=== PATIENT | male | born 1960 | race Caucasian/White ===

== ENCOUNTER → 2019-06-18 13:35 | Outpatient (CLI) | payer OTHER, SELFPAY ==
--- NOTE | 2019-06-18 13:56 | CT_ITS ---
STUDY: CT CHEST WITH CONTRAST REASON FOR EXAM: Male, 58 years old. 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 Individualized dose optimization techniques were used for this CT. COMPARISON: None. FINDINGS: Mild apical paraseptal cystic changes and pleural thickening is present. The lungs are otherwise clear. No nodules. No consolidation. No pleural effusion. No active pulmonary edema. Multiple healed left-sided rib fractures are present. There is no demonstrated pleural abnormality. Normal heart size and pericardium. There are calcifications of the coronary arteries. Normal mediastinum. Normal hilar regions. Normal enhanced pulmonary arteries. There is atherosclerotic calcification of the aortic arch with tortuosity and elongation of the aortic arch and descending thoracic aorta. No aneurysm is seen. There are multi-level degenerative changes of the thoracic spine. No demonstrated destructive bony lesions. A tiny gallstone is present. The remaining visualized upper abdominal structures are grossly unremarkable. CT/Chest WITH Contrast IMPRESSION: 1. Minimal apical pleural scarring and paraseptal cystic changes. Electronically Signed: Mario Perdomo MD at 16:53 EST , Service support ,
--- NOTE | 2019-06-18 13:56 | CT_ITS ---
STUDY: CT SOFT TISSUE NECK WITH CONTRAST REASON FOR EXAM: Male, 58 years old. MALIGNANT TUMOR OF LARYNX-HAVING SURGERY TO REMOVE TOMORROW, PREV SMOKER-45 YR SMOKER X 1 PPD, CHF RADIATION DOSAGE (If Supplied By Facility): CTDIvol = ( 22.14 ) mGy, DLP = ( 1788.09 ) mGycm TECHNIQUE: The patient was scanned in a multi-detector CT scanner. High resolution transaxial imaging was performed following intravenous administration of IV Isovue 300 75. Sagittal and coronal images were reconstructed. Individualized dose optimization techniques were used for this CT. COMPARISON: None. FINDINGS: Abnormal 3.41 x 1.50 cm enhancing mass in the anterior aspect of the lower larynx/junction with the base of the tongue and posterior to the hyoid bone is compatible with the reported malignant neoplasm. There is also abnormal thickening of the inferior aspect of the epiglottis which is likely infiltrated by the adjacent tumor. The left vallecular slightly efface due to mass effect from the enlarged epiglottis. There is also mild to moderate enlargement/hypertrophy and heterogeneous enhancement in the soft palate and retropharyngeal tonsillar tissue and uvula without a discrete mass. The findings could be related to be malignant laryngeal mass. Normal bilateral parotid glands. Normal bilateral rn military spaces. Normal bilateral parapharyngeal spaces. Normal bilateral carotid spaces. Normal bilateral sublingual and submandibular glands and spaces. Normal visualized nasopharynx. Normal retropharyngeal space. Normal perivertebral space. Normal visualized bilateral faucial tonsils. The visualized tongue, tongue base and oropharynx are normal. The visualized cervical lymph nodes (levels I-) are within normal size limits, and maintain normal morphology. There is no demonstrated solid or cystic mass lesion. There is no abnormal contrast enhancement. Normal visualized bilateral piriform sinuses, aryepiglottic folds, vocal cords, and arytenoid-cricoid articulations. Normal subglottic trachea. The left lobe of the thyroid gland is slightly smaller than the right side. Normal visualized pulmonary apices. Normal visualized paranasal sinuses. Normal visualized cervical spine. CT/Soft Tissue Neck WITH Contrast IMPRESSION: 1. Abnormal 3.41 x 1.50 cm enhancing mass in the anterior aspect of the lower larynx/junction with the base of the tongue and posterior to the hyoid bone is compatible with the reported malignant neoplasm. 2. There is also abnormal thickening of the inferior aspect of the epiglottis which is likely infiltrated by the adjacent tumor. 3. There is also mild to moderate enlargement/hypertrophy and heterogeneous enhancement in the soft palate and retropharyngeal tonsillar tissue and uvula of without a discrete mass. The findings could be related to be malignant laryngeal mass. Electronically Signed: Mario Perdomo MD at 16:31 EST , Service support ,
== END ==
PROVIDERS: Family Provider Otolaryngology; PCP Otolaryngology; Referring Provider Otolaryngology; Visit Provider Otolaryngology
DX: C32.9 Malignant neoplasm of larynx, unspecified (principal)
CPT/HCPCS: 70491; 71260; Q9967

== ENCOUNTER 2019-06-19 07:36 | Day surgery (SDC) | payer OTHER, SELFPAY ==
--- NOTE | 2019-06-18 13:49 | EKG12_ITS ---
Test Reason : PRE OP Blood Pressure : / mmHG Vent. Rate : 082 BPM Atrial Rate : 082 BPM P-R Int : 198 ms QRS Dur : 090 ms QT Int : 364 ms P-R-T Axes : 046 -37 028 degrees QTc Int : 425 ms Normal sinus rhythm Left axis deviation Low voltage QRS Inferior infarct , age undetermined Cannot rule out Anterior infarct , age undetermined Abnormal ECG Confirmed by DAVID RUBIN, MANUEL ([id number]), purchasing expeditor GRABIEL PLASENCIA ([id number]) on 06/23/2019 11:31:42 AM Referred By: Mikey Mckenzie Confirmed By:MANUEL HERNANDEZ MD
[2019-06-18 15:19] LABS: Anion Gap 7 (5-15); BUN 17 mg/dL (7-18); BUN/Creat Ratio 16.3 RATIO (10-20); Calcium,Total 9.3 mg/dL (8.5-10.1); Chloride 98 mmol/L (98-107); Creatinine, Serum 1.04 mg/dL (0.70-1.30); EST Glomerular Filtration Rate 78 mL/min (>60); Est Glom Filt Rate - Afr Amer 94 mL/min (>60); Glucose 78 mg/dL (74-106); Potassium 3.5 mmol/L (3.5-5.1); Sodium Level 136 mmol/L (136-145)
[2019-06-19] VITALS (7 sets, daily range): BP systolic 103–132; BP diastolic 69–108; PULSE 16–96; RESP 16; TEMP 36.7–36.8; O2SAT 95–100; BMI 33.0
--- NOTE | 2019-06-19 | LARBX_PTH ---
PATIENT: LAZARO BIRCH [place] [facility] [id number] AGE/SX: 58/M ROOM: RE06/19/[address]: Dr. Mikey Mckenzie MD : 1960 BED: DIS: 06/19/2019 SPEC #: [id number] RECD: 06/19/19 10:40 STATUS: MICHELLE MEAGHAN #: [id number] MANFRED: 06/19/19 00:[address]: Mikey Mckenzie DEPT: SURGICAL PATHOLOGY RECD BY: Teersa Rajan ENTERED: 06/19/19 11:16 SP TYPE: LARYNX BX OTHR DR: Dr. Federico Maradiaga DO Tissues: A - Laryngeal cavity B - Laryngeal cavity C - Laryngeal cavity Procedures: Frozen Section (charge) Surgery Specimen Level IV HEADER OPERATION: Direct microscopic laryngoscopy with biopsy PRE-OP DIAGNOSIS: Malignant tumor of larynx; dysphonia; hemoptysis TISSUE SUBMITTED: A - Laryngeal mass, surface of epiglottis, B - Right false vocal fold, C - Vallecular cyst FROZEN SECTION DIAGNOSIS A. Laryngeal mass, biopsy: Squamous cell carcinoma. AM:beth 06/19/19 Case has been reviewed in consultation with Dr. Louise who concurs with the above diagnosis. IDC:SJ MICROSCOPIC DIAGNOSIS A. 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 Benign fragment of cartilage with associated acute and chronic inflammation. See comment. B. Right false vocal fold, biopsy: Chronic inflammation. No evidence of malignancy. C. 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 No evidence of malignancy. AM:beth 06/22/19 COMMENT A. The specimen contains a well differentiated minimally invasive squamous cell carcinoma with focal keratinization and microcalcifications. Clinical correlation is suggested. Immunohistochemistry ([id number]) supports the diagnosis. Case has been reviewed in consultation with Dr. Louise who concurs with the above diagnosis. IDC:SJ MICROSCOPIC DESCRIPTION Slides are reviewed. GROSS DESCRIPTION A - Received fresh for frozen section consultation/diagnosis labeled with the patient's name is a specimen designated laryngeal mass, surface of epiglottis. The specimen consists of a fragment of velez soft tissue measuring 0.5 x 0.3 x 0.1 cm. The entire specimen is submitted for frozen section diagnosis in one cassette. B - Received in fixative is one container labeled with the patient's name and designated right false vocal fold. The specimen consists of one irregular fragment of light velez soft tissue that measures 0.1 x 0.1 x 0.1 cm. The specimen is totally submitted in one cassette. C - Received in fixative is one container labeled with the patient's name and designated vallecular cyst. The specimen consists of multiple irregular fragments of velez soft tissue that in aggregate measure 0.5 x 0.2 x 0.1 cm. The specimen is totally submitted in one cassette. / SJ:rg 06/19/19 TC:0 CPT: 83221 x3, 45138
--- NOTE | 2019-06-19 | IMM_PTH ---
PATIENT: LAZARO BIRCH LOC: [facility] U#:[id number] AGE/SX: 58/M ROOM: RE06/19/[address]: Dr. Mikey Mckenzie MD : 1960 BED: DIS: 06/19/2019 SPEC #: [id number] RECD: 06/22/19 13:58 STATUS: MICHELLE REQ #: [id number] MANFRED: 06/19/19 00:[address]: Mikey Mckenzie DEPT: IMMUNOHISTOCHEMISTRY RECD BY: Teresa Rajan ENTERED: 06/22/19 14:00 SP TYPE: IMMUNO OTHR DR: Dr. Federico Maradiaga DO Tissues: A - Larynx, NOS Procedures: p16 (initial) CD31 (add) CK5-6 (add) KI-67 (add) FACTOR VIII (add) P40 (add) PHYSICIAN & INSTITUTION [place] [id number] SPECIMEN INFORMATION: Tissue Source: A - Laryngeal mass biopsy Clinical Info: Laryngeal mass Specimen Number: [id number] CPT code: 97119, 08241 x5 METHODOLOGY: Deparaffinized sections of prefer/formalin-fixed tissue or PAP/DQ stained slides are incubated with monoclonal/polyclonal antibodies/oligonucleotide probes. Localization is made via biotin free immunoperoxidase method. Appropriate controls are performed and reacted as expected. Results on target cell population are indicated in the following table: RESULTS: ANTIBODY / CLONE RESULT Block A P16 (E6H4) negative Ki-67 (30-9) positive, low P40 (BC28) positive CK5-6 (D5 & 1684) positive Factor VIII (R Ag) negative CD31 (RICCI/70A) negative These tests were developed and their performance characteristics determined by [facility]. They may not have been cleared or approved by the U.S. Food and Drug Administration. The FDA has determined that such clearance or approval is not necessary. The above immunohistochemical/dualISH markers are ordered and reviewed by the Pathologist. INTERPRETATION: A. Laryngeal mass, biopsy: Invasive squamous cell carcinoma. AM:beth 06/23/19
[2019-06-19] MEDS: Lactated Ringers 1,000 ML 100 ML IV (08:00)
[2019-06-19] MEDS: Oxymetazoline 0.05% 1 SPRAY SPRAY.BTL 15 SPRAY (10:25)
[2019-06-19] MEDS: Lidocaine 4% 50 ML Bottle (10:25)
--- NOTE | 2019-06-19 10:50 | OP.PCM_ITS ---
Problem List (1) Malignant neoplasm of larynx, unspecified Status: Acute (2) Dysphonia Status: Acute (3) Hemoptysis Status: Acute Report of Operation Date of Procedure: 06/19/19 Pre-Operative Diagnosis: Malignant tumor of epiglottis, hemoptysis, hoarseness Post-Operative Diagnosis: Same Surgery/Procedure Performed:: Direct microlaryngoscopy with biopsy of tumor of larynx Description of Surgical Findings:: Kieran is a 58-year-old male presents of a patient for 2 months of progressive hoarseness progressive with hemoptysis. Examination showed an exophytic friable lesion of the epiglottis highly suspicious of malignant neoplasm and the above procedure was advised for definitive evaluation and treatment planning. The risks, alternatives, potential complications, and benefits were discussed at length and any questions answered to the patient and/or caregiver's satisfaction. Witnessed informed consent was obtained in the office, and the patient and/or caregiver was agreeable to proceed. Procedure went as follows: The patient was identified in the preoperative holding and brought to the operating room, placed under general anesthesia, and intubated. When appropriate anesthesia was obtained, the head of bed was rotated and the patient prepped and draped in usual sterile fashion. A moiste duy gauze was then placed to protect the upper gums and the Dedo laryngoscope then introduced. Direct laryngoscopy was then carried out. The lateral posterior pharyngeal wall mucosa, tonsillar fossa, vallecula, piriforms, were noted to be normal in appearance with multiple mucoceles noted within the left vallecula. There is noted to be an exophytic fungating lesion involving the laryngeal surface of the epiglottic petiole. The true and false vocal folds were then brought into view. The patient was then placed in suspension and the operative microscope brought into the field. Using pledgets soaked in a 50-50 mixture of oxymetazoline and 4% topical lidocaine the true vocal folds were then topicalized. The lesion of the epiglottis was then biopsied with a cup forceps and sent for pathologic evaluation which confirmed squamous cell carcinoma. There is additionally noted to be abnormal tissue along the false vocal fold on the right which was additionally biopsied. The laryngoscope was then repositioned in the cysts of the vallecula opened with the overlying mucosa sent as pathologic specimen. Hemostasis with pledgets with oxymetazoline was then obtained and 2 mL's of 4% respiratory lidocaine was then applied with the excess suctioned clear to reduce the risk of laryngospasm at the end of the procedure. The pledgets were then removed and the patient taken out of suspension and returned to anesthesia, was revived, and extubated without complication having tolerated the procedure well. Type of Anesthesia:: General Anesthesiologist: Mikey Villarreal Special Medications: none Specimen's removed: laryngeal biopsies Drains: none Estimated Blood Loss (mL): 5 mL Fluids Replaced: 1000 mL Grafts/Implants Used: none - Complications none - Admit VTE Documentation VTE Present on Admission: No VTE Mechan Device Prophylaxis: SCD's VTE Pharm Prophylaxis ordered?: No
--- NOTE | 2019-06-19 10:56 | DCINST_ITS ---
- Discharge Diagnoses Current Active Problems: Current Active and Chronic Problems Malignant neoplasm of larynx, unspecified (Acute) Dysphonia (Acute) Hemoptysis (Acute) You will use the following diet at home:: No restrictions Discharge Activity: Return to Normal Activity Call your doctor if your incision/area has: Sudden Increased Bleeding Call your doctor if you observe: Fever of 101 or Higher, Uncontrolled pain Allergies/Adverse Reactions: Allergies No Known Allergies Allergy (Verified 06/19/19 07:46) Medications to take at Discharge Azelastine HCl [Astelin] 1 spray NASAL BID 06/18/19 Furosemide [Lasix] 40 mg PO DAILY 06/18/19 Rosuvastatin Calcium [Crestor] 20 mg PO QHS 06/18/19 Spironolactone [Aldactone] 25 mg PO DAILY 06/18/19 Primary Care Physician: Federico Maradiaga DO [Primary Care Provider] - Test Results: Test results from this visit will be discussed in further detail at your follow- up appointment, if applicable. Please Follow Up With: Mikey Mckenzie MD When: 2 weeks
--- NOTE | 2019-07-09 09:13 | HP_ITS ---
Intake Vital Signs 07/09/19 Body Mass Index (BMI) 32.3 07/09/19 Height 6 ft 1 in 07/09/19 Weight: 246 lb 07/09/19 Body Mass Index (BMI) 32.4 07/09/19 Blood Pressure 124/87 H 07/09/19 Blood Pressure Location Rt brachial 07/09/19 Blood Pressure Position Sitting 07/09/19 Respiratory Rate 18 07/09/19 Pulse Rate 99 07/09/19 Pulse Source Monitor 07/09/19 Temperature 97.6 F L 07/09/19 Temperature Source Oral 07/09/19 Pulse Ox 98 07/09/19 Oxygen Delivery Method room air Intake Visit Reasons: Port Placement Consult Chief Complaint: Port placement Veterinary Surgery Technologist Required: No Accompanied by: Is patient in pain?: No Allergies No Known Allergies Allergy (Verified 07/09/19 08:28) Medications Azelastine HCl [Astelin] 1 spray NASAL BID 06/18/19 [History Confirmed 07/09/19] Furosemide [Lasix] 40 mg PO DAILY 06/18/19 [History Confirmed 07/09/19] Rosuvastatin Calcium [Crestor] 20 mg PO QHS 06/18/19 [History Confirmed 07/09/19] Spironolactone [Aldactone] 25 mg PO DAILY 06/18/19 [History Confirmed 07/09/19] Acetaminophen [Tylenol Tablet] 500 mg PO Q4H PRN PRN tab 06/19/19 [Rx Confirmed 07/09/19] PFSH Medical History Malignant neoplasm of larynx, unspecified (Acute) Dysphonia (Acute) Hemoptysis (Acute) Carcinoma of supraglottis (Acute) High cholesterol (Acute) History of low potassium (Acute) biopsy (Acute) Surgical History (Updated 07/09/19 @ 08:26 by Sari Lorenzana) No history of previous surgery (Acute) Family History Mother CVA (cerebral vascular accident) Father Heart disease Social History (Updated 07/09/19 @ 09:13 by Bianka Noguera MD) Smoking Status: Former smoker alcohol intake: current substance use type: does not use HPI HPI HPI: LAZARO BIRCH, is a 58 M who presents to the office today for HPI HPI Surgical H&P: Yes HPI: LAZARO BIRCH, is a 58 M who presents to the office today for port placement and agreeable for 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 Patient had a biopsy mid June. Patient states he noticed initially a sore throat but have a little dysphagia with bread occasionally and will occasionally have hemoptysis small amounts decreased recently. Patient is scheduled for a PET scan next Saturday and is meeting with radiation oncology today. ROS General General: Yes fatigue; no weight change, appetite, colon cancer, breast cancer or weakness HEENT HEENT: Yes difficulty swallowing; no eye injury, eye surgery, swollen glands or hoarseness Endo Endocrine: No thyroid disease, diabetes mellitus, thyroid cancer, Hair loss, heat intolerance or cold intolerance Skin Skin: No rash or changing moles Breast Breast: No left breast lump, right breast lump, nipple discharge, breast pain, abnormal mammogram, abnormal US or breast enlargement Musc Musculoskeletal: No back problems, arthritis, rheumatoid arthritis, gout or joint pain Cardio Cardiovascular: Yes heart disease; no murmur, pacemaker, atrial fibrillation, high blood pressure, heart attack, heart stent, palpitations, shortness of breat with exertion or chest pain Psych Psychiatric: Yes anxiety; no depression or hearing voices Resp Respiratory: Yes shortness of breath, No sleep apnea, Yes cough, No COPD, No asthma, No emphysema, No wheezing Gastro Gastrointestinal: No abdominal pain, No nausea or vomiting, No diarrhea, No constipation, No blood in stool, No acid reflux, No hemorrhoids, No ulcers, No gallbladder problem, No black,tarry stools Vern Hematologic: No blood thinners, No blood disorders, No bleeding, No anemia, No blood clots Neuro Neurologic: No system reviewed and no additional complaints, except as docu, No as per HPI, No abnormal walking, No abnormal hearing, No abnormal movements, No abnormal speech, No behavioral changes, No burning sensations, No confusion, No seizure-like activity, No unsteadiness, No dizziness, No localized weakness, No frequent falls, No headache(s), No lack of coordination, No loss of vision, No memory loss, No numbness, No other visual disturbances, No radiating pain, No restless legs, No sensory deficit, No fainting, No tingling, No tremor(s), No weakness, No other Exam Const General: cooperative, comfortable, no acute distress Neck Neck: normal visual inspection Chest Chest palpation & inspection: normal inspection of the chest Breast Palpation: No nipple discharge Cardio Heart Sounds: no murmurs GI Inspection: non-distended Palpation: soft, no guarding, nontender Assessment & Plan Problems 1. Encounter for adjustment or management of vascular access device Z45.2 2. 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 Right IJ possible left Patient has been counseled as to the risks/benefits of the procedure. I have explained the risks of the surgery, including but not limited to: infection, bleeding, injury to any blood vessels/nerves, injury to lungs (such as pneumothorax or hemothorax and need for chest tube), not having any access, nonfunctioning of port due to thrombosis, infection of port, etc. the patient understands and agrees to proceed. I have answered all the patient's questions to the patient?s satisfaction and the patient has no further questions. Due to patient's plan for radiation chemotherapy for his laryngeal cancer did recommend a PEG tube as people usually have issues with swallowing during treatment which may only last for couple of months but help keep adequate nutrition, patient was agreeable I have offered the patient percutaneous endoscopic gastrostomy tube placement. I have explained the risks/benefits of the procedure and described the procedure. I have discussed the risks with the patient, including but not limited to: infection, bleeding, perforation of the GI tract requiring emergency surgery, inability to complete the procedure, injury to any internal organs, complications of anesthesia, etc. - the patient understands and agrees to proceed. I have answered all the patient's questions to the patient's satisfaction and the patient has no further questions. Bianka Noguera M.D. Pager: [phone] [facility] [address] [place] [address], [facility], [address] [place] [address] Office: 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
== END 2019-06-19 11:52 | disposition home or self-care (01) ==
LOC: SDC 07:37 → AC 07:38
PROVIDERS: Family Provider Student in an Organized Health Care Education/Training Program; PCP Student in an Organized Health Care Education/Training Program; Referring Provider Otolaryngology; Visit Provider Otolaryngology
PROC: 0CJS8ZZ Inspection of Larynx, Via Natural or Artificial Opening Endoscopic (ICD-10-PCS; CPT 31575; principal; 2019-06-19 09:15)
DX: C32.9 Malignant neoplasm of larynx, unspecified (principal); R49.0 Dysphonia; R04.2 Hemoptysis; E78.00 Pure hypercholesterolemia, unspecified; Z79.899 Other long term (current) drug therapy; F10.20 Alcohol dependence, uncomplicated; J44.9 Chronic obstructive pulmonary disease, unspecified; F17.290 Nicotine dependence, other tobacco product, uncomplicated
CPT/HCPCS: 31536; 36415; 80048; 88305; 88331; 88341; 88342; 93005; J7120; J2405

== ENCOUNTER 2019-07-15 14:23 | Outpatient (RCR) | payer OTHER, SELFPAY ==
[2019-07-09 08:28] VITALS: BMI 32.3
== END 2019-08-04 23:59 ==
LOC: NS 14:23
PROVIDERS: Family Provider Student in an Organized Health Care Education/Training Program; PCP Student in an Organized Health Care Education/Training Program; Visit Provider Internal Medicine Medical Oncology
DX: Z71.3 Dietary counseling and surveillance (principal); C32.2 Malignant neoplasm of subglottis
CPT/HCPCS: 97802

== ENCOUNTER 2019-07-16 06:42 | Day surgery (SDC) | payer OTHER, SELFPAY ==
[2019-07-09 08:28] VITALS: BMI 32.3
--- NOTE | 2019-07-09 09:13 | HP_ITS ---
Intake Vital Signs 07/09/19 Body Mass Index (BMI) 32.3 07/09/19 Height 6 ft 1 in 07/09/19 Weight: 246 lb 07/09/19 Body Mass Index (BMI) 32.4 07/09/19 Blood Pressure 124/87 H 07/09/19 Blood Pressure Location Rt brachial 07/09/19 Blood Pressure Position Sitting 07/09/19 Respiratory Rate 18 07/09/19 Pulse Rate 99 07/09/19 Pulse Source Monitor 07/09/19 Temperature 97.6 F L 07/09/19 Temperature Source Oral 07/09/19 Pulse Ox 98 07/09/19 Oxygen Delivery Method room air Intake Visit Reasons: Port Placement Consult Chief Complaint: Port placement Liquor Blender Required: No Accompanied by: Is patient in pain?: No Allergies No Known Allergies Allergy (Verified 07/09/19 08:28) Medications Azelastine HCl [Astelin] 1 spray NASAL BID 06/18/19 [History Confirmed 07/09/19] Furosemide [Lasix] 40 mg PO DAILY 06/18/19 [History Confirmed 07/09/19] Rosuvastatin Calcium [Crestor] 20 mg PO QHS 06/18/19 [History Confirmed 07/09/19] Spironolactone [Aldactone] 25 mg PO DAILY 06/18/19 [History Confirmed 07/09/19] Acetaminophen [Tylenol Tablet] 500 mg PO Q4H PRN PRN tab 06/19/19 [Rx Confirmed 07/09/19] PFSH Medical History Malignant neoplasm of larynx, unspecified (Acute) Dysphonia (Acute) Hemoptysis (Acute) Carcinoma of supraglottis (Acute) High cholesterol (Acute) History of low potassium (Acute) biopsy (Acute) Surgical History (Updated 07/09/19 @ 08:26 by Sari Lorenzana) No history of previous surgery (Acute) Family History Mother CVA (cerebral vascular accident) Father Heart disease Social History (Updated 07/09/19 @ 09:13 by Bianka Noguera MD) Smoking Status: Former smoker alcohol intake: current substance use type: does not use HPI HPI HPI: LAZARO BIRCH, is a 58 M who presents to the office today for HPI HPI Surgical H&P: Yes HPI: LAZARO BIRCH, is a 58 M who presents to the office today for port placement and agreeable for 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 Patient had a biopsy mid June. Patient states he noticed initially a sore throat but have a little dysphagia with bread occasionally and will occasionally have hemoptysis small amounts decreased recently. Patient is scheduled for a PET scan next Saturday and is meeting with radiation oncology today. ROS General General: Yes fatigue; no weight change, appetite, colon cancer, breast cancer or weakness HEENT HEENT: Yes difficulty swallowing; no eye injury, eye surgery, swollen glands or hoarseness Endo Endocrine: No thyroid disease, diabetes mellitus, thyroid cancer, Hair loss, heat intolerance or cold intolerance Skin Skin: No rash or changing moles Breast Breast: No left breast lump, right breast lump, nipple discharge, breast pain, abnormal mammogram, abnormal US or breast enlargement Musc Musculoskeletal: No back problems, arthritis, rheumatoid arthritis, gout or joint pain Cardio Cardiovascular: Yes heart disease; no murmur, pacemaker, atrial fibrillation, high blood pressure, heart attack, heart stent, palpitations, shortness of breat with exertion or chest pain Psych Psychiatric: Yes anxiety; no depression or hearing voices Resp Respiratory: Yes shortness of breath, No sleep apnea, Yes cough, No COPD, No asthma, No emphysema, No wheezing Gastro Gastrointestinal: No abdominal pain, No nausea or vomiting, No diarrhea, No constipation, No blood in stool, No acid reflux, No hemorrhoids, No ulcers, No gallbladder problem, No black,tarry stools Vern Hematologic: No blood thinners, No blood disorders, No bleeding, No anemia, No blood clots Neuro Neurologic: No system reviewed and no additional complaints, except as docu, No as per HPI, No abnormal walking, No abnormal hearing, No abnormal movements, No abnormal speech, No behavioral changes, No burning sensations, No confusion, No seizure-like activity, No unsteadiness, No dizziness, No localized weakness, No frequent falls, No headache(s), No lack of coordination, No loss of vision, No memory loss, No numbness, No other visual disturbances, No radiating pain, No restless legs, No sensory deficit, No fainting, No tingling, No tremor(s), No weakness, No other Exam Const General: cooperative, comfortable, no acute distress Neck Neck: normal visual inspection Chest Chest palpation & inspection: normal inspection of the chest Breast Palpation: No nipple discharge Cardio Heart Sounds: no murmurs GI Inspection: non-distended Palpation: soft, no guarding, nontender Assessment & Plan Problems 1. Encounter for adjustment or management of vascular access device Z45.2 2. 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 Right IJ possible left Patient has been counseled as to the risks/benefits of the procedure. I have explained the risks of the surgery, including but not limited to: infection, bleeding, injury to any blood vessels/nerves, injury to lungs (such as pneumothorax or hemothorax and need for chest tube), not having any access, nonfunctioning of port due to thrombosis, infection of port, etc. the patient understands and agrees to proceed. I have answered all the patient's questions to the patient?s satisfaction and the patient has no further questions. Due to patient's plan for radiation chemotherapy for his laryngeal cancer did recommend a PEG tube as people usually have issues with swallowing during treatment which may only last for couple of months but help keep adequate nutrition, patient was agreeable I have offered the patient percutaneous endoscopic gastrostomy tube placement. I have explained the risks/benefits of the procedure and described the procedure. I have discussed the risks with the patient, including but not limited to: infection, bleeding, perforation of the GI tract requiring emergency surgery, inability to complete the procedure, injury to any internal organs, complications of anesthesia, etc. - the patient understands and agrees to proceed. I have answered all the patient's questions to the patient's satisfaction and the patient has no further questions. Bianka Noguera M.D. Pager: [phone] [facility] [address] [place] [address], [facility], [address] [place] [address] Office: 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 There are no clinical changes since date of exam.
[2019-07-15 14:57] VITALS: BMI 32.7
[2019-07-16] VITALS (10 sets, daily range): BP systolic 81–113; BP diastolic 50–76; PULSE 71–86; RESP 16; TEMP 36.5–36.7; O2SAT 96–100; BMI 32.5
--- NOTE | 2019-07-16 | IMM_PTH ---
PATIENT: LAZARO BIRCH [place] [facility] [id number] AGE/SX: 58/M ROOM: RE07/16/[address]: Dr. Bianka Noguera MD : 1960 BED: DIS: 07/16/2019 SPEC #: [id number] RECD: 07/17/19 10:10 STATUS: MICHELLE REQ #: [id number] MANFRED: 07/16/19 00:[address]: Bianka Noguera DEPT: IMMUNOHISTOCHEMISTRY RECD BY: Teresa Rajan ENTERED: 07/17/19 10:12 SP TYPE: IMMUNO OTHR DR: Dr. Federico Maradiaga DO Tissues: Gastric mucous membrane Procedures: Synapto (add) Woody Ret (add) CD56 (add) CHROMO (add) CK14 (add) CK5-6 (add) FABIENNE (add) P53 (add) NEUROFIL (add) Pankeratin (initial) P40 (add) NSE (add) S-100 (add) PHYSICIAN & [address] [address] SPECIMEN INFORMATION: Tissue Source: GE junction Clinical Info: Malignant neoplasm larynx, carcinoma supraglottis Specimen Number: [id number] CPT code: 33687, 68501 x12 METHODOLOGY: Deparaffinized sections of prefer/formalin-fixed tissue or PAP/DQ stained slides are incubated with monoclonal/polyclonal antibodies/oligonucleotide probes. Localization is made via biotin free immunoperoxidase method. Appropriate controls are performed and reacted as expected. Results on target cell population are indicated in the following table: RESULTS: ANTIBODY / CLONE RESULT AE1-3 (AE1/AE3/PCK26) negative S-100 (4C4.9) positive Neurofil (2F11) negative CK5-6 (D5 & 1684) positive Chromo (LK2H10) negative Synapto (polyclonal) positive, dim NSE Neuron Specific Enolase positive CALRET (polyclonal) negative CD56 (123C3.D5) negative CK14 (LL002) negative P40 (BC28) negative FABIENNE (E29) negative P53 (DO-7) positive, 5% dim These tests were developed and their performance characteristics determined by [facility]. They may not have been cleared or approved by the U.S. Food and Drug Administration. The FDA has determined that such clearance or approval is not necessary. The above immunohistochemical/dualISH markers are ordered and reviewed by the Pathologist. 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 AM:beth 07/20/19 Case has been reviewed in consultation with Dr. Louise who concurs with the above diagnosis. IDC:SJ
[2019-07-16] MEDS: Lactated Ringers 1,000 ML 100 ML IV (07:37)
--- NOTE | 2019-07-16 08:00 | EGD_PTH ---
PATIENT: LAZARO BIRCH LOC: [facility] [place] U#:[id number] AGE/SX: 58/M ROOM: RE07/16/[address]: Dr. Bianka Noguera MD : 1960 BED: DIS: 07/16/2019 SPEC #: [id number] RECD: 07/16/19 10:17 STATUS: MICHELLE MEAGHAN #: [id number] MANFRED: 07/16/19 08:[address]: Bianka Noguera DEPT: SURGICAL PATHOLOGY RECD BY: Jamie Richardson ENTERED: 07/16/19 13:13 SP TYPE: EGD BIOPSY OT DR: Dr. Federico Maradiaga, DO Tissues: Gastric mucous membrane Procedures: Special Stain Group II Surgery Specimen Level IV Alcian Blue/PAS (control) HEADER OPERATION: Percutaneous endoscopic gastrostomy tube placement PRE-OP DIAGNOSIS: Malignant neoplasm larynx, carcinoma supraglottis TISSUE SUBMITTED: GE junction MICROSCOPIC DIAGNOSIS Gastroesophageal junction, biopsy: Consistent with granular cell tumor. See comment. AM:beth 07/20/19 COMMENT Sections show proliferation of monomorphic population of epithelioid-like cells with eosinophilic, granular cytoplasm. The lesion extends into the lamina propria without involvement of overlying epithelium. Alcian blue/PAS stain with matched control supports the above diagnosis. Immunohistochemistry ([id number]) supports the above diagnosis. Case has been reviewed in consultation with Dr. Louise who concurs with the above diagnosis. IDC:PORSHA MICROSCOPIC DESCRIPTION Slides are reviewed. GROSS DESCRIPTION Received in fixative is one container labeled with the patient's name and designated GE junction. The specimen consists of two irregular fragments of light velez soft tissue that in aggregate measure 0.5 x 0.3 x 0.1 cm. The specimen is totally submitted in one cassette. / PORSHA:beth 07/16/19 TC:1 CPT: 86959, 98390
[2019-07-16] MEDS: Cefazolin 2 GM in 0.9% Normal Saline 100 ML IV (08:11)
[2019-07-16] MEDS: Bupivacaine Mpf 0.5% 30 ML VIAL (08:25)
--- NOTE | 2019-07-16 08:52 | PCM.OPRPT ---
Report of Operation Date of Procedure: 07/16/19 Pre-Operative Diagnosis: Z 45.2, laryngeal carcinoma Post-Operative Diagnosis: Same Surgery/Procedure Performed:: 1. Placement of right IJ Port-A-Cath. 2. Use of fluoroscopy. 3. Use of ultrasound Type of Anesthesia:: MAC/Supplemental Anesthesiologist: Ellis Sinclair Special Medications: Ancef 2 g IV x1 Specimen's removed: None Estimated Blood Loss (mL): Minimal Description of Procedure: After informed consent was given, the patient was brought to the operating room and placed in the supine position. Appropriate time out protocol was followed. He was then given IV conscious sedation for anesthesia. The patient's bilateral upper chest and neck were then prepped with a surgical skin preparation and sterile surgical drapes were placed. After proper landmarks were ascertained, the skin at the upper right chest area was then infiltrated with 1:1 mixture of 1% lidocaine with epinephrine and 0.5% maricaine. A needle trocar was then inserted into the right internal jugular vein with ultrasound guidance-multiple vessels were viewed with u/s and the right IJ was chosen-- and there was good aspiration of venous blood. A wire was then threaded into the needle trocar and this was visualized under fluoroscopy to ensure that the wire was in the superior vena cava. Once this was done, then the needle trocar was removed. A small skin estrellita was made with an 11 blade knife at the wire entrance site. The dilator with the introducer sheath attached was then placed over the wire into the right internal jugular vein via the Seldinger technique and this was visualized under fluoroscopy. The dilator and sheath were in proper position as visualized by fluoroscopy. A subcutaneous pocket was then created caudad to the catheter insertion site. A transverse skin incision was made after the skin and subcutaneous tissues were infiltrated with local anesthetic. Blunt dissection was then used to create a space large enough for placement of the subcutaneous port. The catheter was then tunneled into the subcutaneous pocket. The wire and dilator were then removed. The catheter was then threaded into the introducer sheath and was positioned with its tip at the junction of the superior vena cava and the right atrium as visualized under fluoroscopy. The excess catheter was transected. The catheter was then attached to the subcutaneous port using manufacturers guidelines. The catheter was flushed with a heparin saline mixture prior to placement. Hemostasis was carefully controlled with electrocautery. The port was sutured to the subcutaneous fascia using 2-0 Vicryl suture at two sites. The port was then placed in the subcutaneous pocket and the sutures were ligated. The incision were reapproximated with interrupted subdermal 3-0 vicryl sutures. The skin was reapproximated with 3-0 nylon suture in a interrupted fashion. Steristrips were used for reinforcement of the skin closure at IJ insertion site and a sterile opsite dressings were applied. The patient tolerated the procedure well. Implants Used: Bard PowerPort isp M.R.I. 6Fr Lot lot [id number] ref [id number] Grafts/Implants Used: Bard PowerPort isp M.R.I. 6Fr Lot lot [id number] ref [id number] - Complications none
--- NOTE | 2019-07-16 09:35 | RAD_ITS ---
STUDY: X-RAY CHEST REASON FOR EXAM: Male, 58 years old. Port placement. TECHNIQUE: Single AP portable view of the chest. COMPARISON: None. FINDINGS: A right-sided portacatheter as been placed. The tip is at the junction of the superior vena cava and right atrium. Minimal increased markings at the left lung base suggestive of scarring and/or atelectasis. There is no demonstrated pleural abnormality. Normal size heart. Normal mediastinum and brendan. Normal visualized pulmonary arteries. Normal visualized aortic arch and descending thoracic aorta. There are diffuse degenerative changes of the visualized thoracic spine. Normal visualized ribs, clavicles, and shoulders. There is no demonstrated abnormality of the visualized soft tissue structures of the upper abdomen. RAD/CXR for Line Placement IMPRESSION: The tip of the right-sided portacatheter is at the junction of the superior vena cava and right atrium. Electronically Signed: Robin Rebolledo, at 10:27 EST , Service support ,
--- NOTE | 2019-07-16 09:41 | DCINST_ITS ---
Discharge Diet: No Restrictions Discharge Activity: May not drive while taking narcotic pain medications. May shower in (days): 1 - Keep port site clean and dry x5 days tape off with a Ziploc bag or take a lower shower and sponge bath the top part of your body. Lifting Restrictions: No lifting greater than 15 pounds with the right arm x1 week Call your doctor if your incision/area has: Continuous Slow Oozing, Sudden Increased Bleeding, Increased Pain/ Swelling, Increased Redness, Foul Smelling Discharge, Swelling at the incision site Call your doctor if you observe: Fever of 101 or Higher Change Dressing in (Days):: 2 - Okay to remove neck OpSite tomorrow, okay to keep the port site OpSite on for 2 to 3 days before changing, change the PEG site dressing daily Cleanse incision/area with: Soap & Water - PEG site Additional Dressing/Incision Instructions:: Flush the PEG with 30 cc of tap water daily Additional Instructions: Okay to take ibuprofen 400-600 mg PO q6hr PRN along with the hydrocodone/acetaminophen. Avoid Tylenol since there is already Tylenol in the hydrocodone/acetaminophen. Take all pain meds with food. Hydrocodone/acetaminophen can cause constipation recommend taking daily stool softener (i.e. Colace/docusate) while taking the pain meds. Recommend starting some MiraLAX 1 to 2 days if no bowel movement. If still no bowel movement the following day recommend taking magnesium citrate half the bottle and waiting 4-6 hours if still no results take the other half the bottle. Allergies/Adverse Reactions: Allergies No Known Allergies Allergy (Verified 07/15/19 14:57) Medications to take at Discharge Furosemide [Lasix] 40 mg PO DAILY 06/18/19 Rosuvastatin Calcium [Crestor] 20 mg PO QHS 06/18/19 Spironolactone [Aldactone] 25 mg PO DAILY 06/18/19 Ubidecarenone [Co Q-10] 10 mg PO DAILY 07/09/19 Dexamethasone [Decadron] 8 mg PO DAILY 42 Days #18 tab 07/15/19 Lidocaine/Prilocaine [Lidocaine-Prilocaine Cream] 1 applicatio TP DAILY PRN PRN 30 Days #1 tube 07/15/19 Olanzapine 10 mg PO DAILY 42 Days #12 tab 07/15/19 Ondansetron [Ondansetron Odt] 8 mg PO Q8H PRN PRN 10 Days #30 tab.rapdis 07/15/19 Prochlorperazine Maleate 10 mg PO Q6H PRN PRN 10 Days #30 tab 07/15/19 Hydrocodone Bitart/Apap 5-325 [Page 5MG-325MG] 1 tablet PO Q6H PRN PRN 2 Days #5 tablet 07/16/19 The following prescriptions were given: Hydrocodone Bitart/Apap 5-325 [Page 5MG-325MG] 1 tablet PO Q6H PRN PRN 2 Days #5 tablet PRN Reason: Pain Transmission Status: [place] to [facility] [id number] Primary Care Physician: Federico Maradiaga DO [Primary Care Provider] - Test Results: Test results from this visit will be discussed in further detail at your follow- up appointment, if applicable. Please Follow Up With: Bianka Noguera MD - Call [phone] with any concerns after 5:00 and on the weekend When: Call the office for follow-up appointment in 10 days for suture removal Proposed Discharge Date: 07/16/19
--- NOTE | 2019-07-16 09:52 | OP.EGD_ITS ---
Patient Name: Kieran Taylor Procedure Date: 07/16/2019 8:58 AM Date of : 1960 Age: 58 Procedure: Upper GI endoscopy Indications: Place PEG due to feeding difficulties secondary to laryngeal tumor Providers: Bianka Noguera MD Referring MD: Bianka Noguera MD Medicines: Monitored Anesthesia Care Patient Profile: This is a 58 year old male. Complications: No immediate complications. Procedure: Pre-Anesthesia Assessment: - Prior to the procedure, a History and Physical was performed, and patient medications and allergies were reviewed. The patient's tolerance of previous anesthesia was also reviewed. The risks and benefits of the procedure and the sedation options and risks were discussed with the patient. All questions were answered, and informed consent was obtained. Prior Anticoagulants: The patient has taken no previous anticoagulant or antiplatelet agents. ASA Grade Assessment: II - A patient with mild systemic disease. After reviewing the risks and benefits, the patient was deemed in satisfactory condition to undergo the procedure. After obtaining informed consent, the endoscope was passed under direct vision. Throughout the procedure, the patient's blood pressure, pulse, and oxygen saturations were monitored continuously. The gastroscope was introduced through the mouth, and advanced to the second part of duodenum. The upper GI endoscopy was accomplished without difficulty. The patient tolerated the procedure well. Scope In: 9:01:23 AM Scope Out: 9:23:03 AM Total Procedure Duration Time 0 hours 21 minutes 40 seconds Findings: Localized mucosal changes characterized by discoloration were found at the gastroesophageal junction. Biopsies were taken with a cold forceps for histology. The Z-line was variable and was found 43 cm from the incisors. The examined duodenum was normal. The stomach was normal. The patient was placed in the supine position for PEG placement. The stomach was insufflated to appose gastric and abdominal lima. A site was located in the antrum of the stomach with good transillumination and manual external pressure for placement. The abdominal wall was marked and prepped in a sterile manner. The area was anesthetized with 3 mL of 1% lidocaine. The trocar needle was introduced through the abdominal wall and into the stomach under direct endoscopic view. A snare was introduced through the endoscope and opened in the gastric lumen. The guide wire was passed through the trocar and into the open snare. The snare was closed around the guide wire. The endoscope and snare were removed, pulling the wire out through the mouth. A skin incision was made at the site of needle insertion. The externally removable 20 Fr EndoVive Safety gastrostomy tube was lubricated. The G-tube was tied to the guide wire and pulled through the mouth and into the stomach. The trocar needle was removed, and the gastrostomy tube was pulled out from the stomach through the skin. The external bumper was attached to the gastrostomy tube, and the tube was cut to remove the guide wire. The final position of the gastrostomy tube was confirmed by relook endoscopy, and skin marking noted to be 4.5 cm at the external bumper. The final tension and compression of the abdominal wall by the PEG tube and external bumper were checked and revealed that the bumper was loose and lightly touching the skin. The feeding tube was capped, and the tube site cleaned and dressed. Impression: - Discolored mucosa in the esophagus. Biopsied. - Z-line variable, 43 cm from the incisors. - Normal examined duodenum. - Normal stomach. - An externally removable PEG placement was successfully completed. Recommendation: - Please follow the post-PEG recommendations including: change dressing once per day, flush PEG daily with 60 ml water and clean site with soap and water daily and dry thoroughly. - Continue present medications. Procedure Code(s): --- Professional --- 43680, Esophagogastroduodenoscopy, flexible, transoral; with directed placement of percutaneous gastrostomy tube 07703, Esophagogastroduodenoscopy, flexible, transoral; with biopsy, single or multiple Diagnosis Code(s): --- Professional --- K22.8, Other specified diseases of esophagus D38.0, Neoplasm of uncertain behavior of larynx R63.3, Feeding difficulties Z43.1, Encounter for attention to gastrostomy CPT copyright 2017 [employer]. All rights reserved. The codes documented in this report are preliminary and upon lean sensei review may be revised to meet current compliance requirements. MD Bianka Holly MD 07/16/2019 9:51:45 AM This report has been signed electronically. Number of Addenda: 0 Note Initiated On: 07/16/2019 8:58 AM
== END 2019-07-16 10:41 | disposition home or self-care (01) ==
LOC: SDC 06:42 → AC 06:44
PROVIDERS: Family Provider Student in an Organized Health Care Education/Training Program; PCP Student in an Organized Health Care Education/Training Program; Referring Provider Surgery; Visit Provider Surgery
PROC: (CPT 36561; principal; 2019-07-16 07:45)
PROC: 0DJ08ZZ Inspection of Upper Intestinal Tract, Via Natural or Artificial Opening Endoscopic (ICD-10-PCS; CPT 43235; principal; 2019-07-16 08:55)
DX: Z45.2 Encounter for adjustment and management of vascular access device (principal); C32.1 Malignant neoplasm of supraglottis; D38.0 Neoplasm of uncertain behavior of larynx; K22.8 Other specified diseases of esophagus; R63.3 Feeding difficulties; Z43.1 Encounter for attention to gastrostomy; Z87.891 Personal history of nicotine dependence; R13.10 Dysphagia, unspecified
CPT/HCPCS: 36561; 43239; 43246; 71045; 77001; 88305; 88313; 88341; 88342; J7120; J2405

== ENCOUNTER 2019-08-19 13:51 | Outpatient (RCR) | payer OTHER, SELFPAY ==
[2019-07-09 09:22] VITALS: BMI 32.3
[2019-08-04 09:52] VITALS: BMI 32.7
[2019-08-17 10:10] VITALS: BMI 32.4
== END 2019-09-04 23:59 ==
LOC: NS 13:51
PROVIDERS: Family Provider Student in an Organized Health Care Education/Training Program; PCP Student in an Organized Health Care Education/Training Program; Visit Provider Internal Medicine Medical Oncology
DX: Z71.3 Dietary counseling and surveillance (principal); C32.2 Malignant neoplasm of subglottis
CPT/HCPCS: 97803

== ENCOUNTER 2019-09-11 12:19 | Inpatient (IN) | payer OTHER, SELFPAY ==
[2019-08-31 08:48] VITALS: BMI 31.6
[2019-09-11 12:20] VITALS: BP 113/60; PULSE 99; RESP 16; TEMP 36.6; O2SAT 97; BMI 30.3
--- NOTE | 2019-09-11 12:34 | RAD_ITS ---
STUDY: X-RAY - RIGHT TIBIA AND FIBULA REASON FOR EXAM: Male, 58 years old. Pain and swelling TECHNIQUE: 3 view(s) of the tibia and fibula were obtained. COMPARISON: None. FINDINGS: Tibia is unremarkable aside from sclerotic area in the proximal lateral tibia likely bone infarct. However, if there is pain localized to this area a more sinister process cannot be excluded. Contour irregularity in the distal fibula consistent with old healed fracture. There is cortical irregularity in the distal lateral fibula suggesting an acute nondisplaced fracture. There is extensive soft tissue swelling. There is also a minimally displaced fracture in the proximal fibula RAD/Tibia & Fibula 2 Views IMPRESSION: Cortical irregularity in the distal fibula consistent with old healed fracture, there is cortical irregularity in the distal lateral fibula suggesting an acute nondisplaced fractures present. There is associated extensive soft tissue swelling Acute minimally displaced proximal fibular fracture Sclerotic area within the proximal lateral tibia likely bone infarct. However if pain can be localized to this area more sinister underlying process cannot be excluded. Electronically Signed: Sukhjinder Anthony MD at 13:35 EST , Service support ,
--- NOTE | 2019-09-11 12:34 | RAD_ITS ---
STUDY: X-RAY - RIGHT FOOT CLINICAL: Male, 58 years old. Pain and swelling TECHNIQUE: 3 view(s) of the foot. COMPARISON: None. FINDINGS: AP film suggests a possible fracture in the distal fibula please see associated ankle study for further evaluation Normal talus, calcaneus, and tarsal bones. Normal visualized subtalar, talonavicular, calcaneocuboid, tarsal and tarsometatarsal articulations. Normal metatarsi. There is degenerative arthrosis of the metatarsophalangeal joint of the hallux . Normal tibial and fibular sesamoid bones. Normal interphalangeal joint of the great toe. Normal phalanges of the great toe. Normal second through fifth metatarsophalangeal joints. PIP and DIP joint arthrosis The soft tissue structures are unremarkable. RAD/Foot min 3 Views IMPRESSION: Degenerative arthrosis Electronically Signed: Sukhjinder Anthony MD at 13:29 EST , Service support ,
--- NOTE | 2019-09-11 12:47 | ED.VIS.GEN ---
History of Present Illness Chief Complaint: Fall Informant: Patient Onset: Yesterday Context: Gradual Onset Timing: Continuous Current Severity: Moderate Maximum Severity: Moderate Narrative: The patient presents to the emergency department at referral from his oncologist. The patient has diagnosis of throat cancer. He has undergone 33 radiation treatments and finished his last chemotherapy last week. He states he been doing well, but because of his cancer, he has had diminished oral intake. Yesterday, he had a mechanical fall and twisted his right ankle. He followed up with his oncologist today and was found to have acute renal failure. He states that he has had diminished oral intake. He does get his nutrition through a PEG tube and states he is been tolerating his feeds without issue. He has not had any recent change in medications. He states he still urinating without issue. Prior similar symptoms: No Recent Illness/Hospitalization: Yes Past Medical History - Allergies and Home Meds Allergies/Adverse Reactions: Allergies No Known Allergies Allergy (Verified 09/11/19 12:23) Primary Care Physician: Federico Maradiaga DO [Primary Care Provider] - Prior records reviewed: Yes Past Medical History: - - Throat cancer Surgical History: noncontributory Smoking Status: Former smoker Review of Systems General: Reports: Malaise. Denies: Chills, Fever, Sweats Eyes: Denies: Visual changes - bilaterally, Diplopia ENT: Denies: Rhinorrhea, Sore throat Cardiovascular: Denies: Chest pain, Palpitations Respiratory: Denies: Dyspnea, Cough, Dyspnea on exertion Gastrointestinal: Denies: Abdominal pain, Nausea, Vomiting, Diarrhea, Melena, Hematochezia Genitourinary: Denies: Dysuria, Hematuria, Frequency Musculoskeletal: Denies: Back pain, Extremity Pain Skin: Denies: Rash, Wounds Neurological: Denies: Headache, Weakness, Numbness Physical Exam Vital Signs/Narrative: Vital Signs Temp Pulse Resp BP Pulse Ox 09/11/19 12:20 97.8 F 99 16 113/60 97 Inital Vital Signs reviewed: Yes General: Well nourished, Well developed, No Acute Distress Head: Normocephalic, Atraumatic Eyes: Perrl, EOMI ENT: Moist mucous membranes, No rhinorrhea Neck: Supple, Nontender Cardiovascular: Regular rate, Regular rhythm, No murmurs Respiratory: No distress, CTA bilaterally, Chest nontender Abdomen: Soft, Nontender, Nondistended, Normal bowel sounds Back: Nontender, Normal Inspection Extremities: No edema, Tenderness - Tenderness over lateral malleolus. Burrell negative. Normal pulses. Skin: Normal color, No rash Neurological: Alert, Oriented x3, Cranial nerves II-XII grossly intact, Normal Strength, Normal Sensation Psychological: Normal affect, Normal Mood Diagnostic/Tx/Re-eval Clinical Impression(s) from Imaging Studies Foot X-Ray 09/11/19 12:34 IMPRESSION: Degenerative arthrosis Electronically Signed: Sukhjinder Anthony MD at 13:29 EST , Service support , Tibia/Fibula X-Ray 09/11/19 12:34 IMPRESSION: Cortical irregularity in the distal fibula consistent with old healed fracture, there is cortical irregularity in the distal lateral fibula suggesting an acute nondisplaced fractures present. There is associated extensive soft tissue swelling Acute minimally displaced proximal fibular fracture Sclerotic area within the proximal lateral tibia likely bone infarct. However if pain can be localized to this area more sinister underlying process cannot be excluded. Electronically Signed: Sukhjinder Anthony MD at 13:35 EST , Service support , Ankle X-Ray 09/11/19 13:10 IMPRESSION: Old healed distal fibular fracture with likely new acute nondisplaced fracture in the distal lateral fibula best seen on the AP film. Extensive diffuse soft tissue swelling Calcaneal spurs Electronically Signed: Sukhjinder Anthony MD at 13:32 EST , Service support , Abnormal Lab Results 09/11/19 12:54 Sodium 130 L Potassium 3.1 L Chloride 81 L Carbon Dioxide 41.0 H Anion Gap 8 BUN 127 H* Creatinine 4.63 H Estim Creat Clear Calc 19.41 Est GFR (MDRD) Af Amer 17 L Est GFR (MDRD) Non-Af 14 L BUN/Creatinine Ratio 27.4 H Glucose 134 H Calcium 7.4 L Total Bilirubin 0.30 AST 18 ALT 25 Alkaline Phosphatase 118 H Total Protein 6.4 Albumin 2.6 L Globulin 3.8 Albumin/Globulin Ratio 0.7 L - Medical Decision Making The patient presents with acute kidney injury in the setting of oropharyngeal cancer. He states has not been drinking as much. He does use his PEG tube for nutrition, but states he does not take any water through it. He also had a fall. His compartments are soft. X-rays do show nondisplaced distal fibula fracture which she was placed in a boot for. I did repeat his labs to make sure there is no lab error. He does have evidence of acute kidney injury. The patient was aggressively hydrated. Given his renal dysfunction, he will be admitted. EKG was obtained which was sinus rhythm without acute ischemic change or dysrhythmia. The patient was discussed with the hospitalist. Impression 1. Acute kidney injury 2. Dehydration 3. Closed nondisplaced distal fibula fracture ED Disposition - Plan for ED Patient: Referrals: Federico Maradiaga DO [Primary Care Provider] -
[2019-09-11] MEDS: 0.9% Normal Saline 1,000 ML 999 ML IV (13:00)
--- NOTE | 2019-09-11 13:10 | RAD_ITS ---
STUDY: X-RAY - RIGHT ANKLE REASON FOR EXAM: Male, 58 years old. Pain and swelling TECHNIQUE: 3 view(s) of the ankle. COMPARISON: None. FINDINGS: Normal visualized distal tibia. Contour irregularity in the distal fibula suggests old healed fracture. Lucencies noted in the distal lateral fibula on the AP film suggests a likely subtle nondisplaced fracture there is extensive soft tissue swelling.. Normal medial malleoli. Normal tibiotalar articulation and ankle mortise. Normal visualized talus. Calcaneal spurs The visualized subtalar, talonavicular, calcaneocuboid and tarsal articulations are normal. RAD/Ankle min 3 Views IMPRESSION: Old healed distal fibular fracture with likely new acute nondisplaced fracture in the distal lateral fibula best seen on the AP film. Extensive diffuse soft tissue swelling Calcaneal spurs Electronically Signed: Sukhjinder Anthony MD at 13:32 EST , Service support ,
[2019-09-11 13:21] LABS: ALB/GLOB Ratio 0.7 RATIO (0.9-2.4); AST(SGOT) 18 U/L (15-37); Alanine Aminotransfer ALT/SGPT 25 U/L (16-61); Albumin, Serum 2.6 g/dL (3.2-5.0); Alkaline Phosphatase 118 U/L (45-117); Anion Gap 8 (5-15); BUN 127 mg/dL (7-18); BUN/Creat Ratio 27.4 RATIO (10-20); Calcium,Total 7.4 mg/dL (8.5-10.1); Chloride 81 mmol/L (98-107); Creatinine, Serum 4.63 mg/dL (0.70-1.30); EST Glomerular Filtration Rate 14 mL/min (>60); Est Glom Filt Rate - Afr Amer 17 mL/min (>60); Estimated Creatinine Clearance 19.41 ml/min; Globulin 3.8 g/dL (2.2-4.2); Glucose 134 mg/dL (74-106); Potassium 3.1 mmol/L (3.5-5.1); Protein, Total 6.4 g/dL (6.4-8.2); Sodium Level 130 mmol/L (136-145)
--- NOTE | 2019-09-11 13:22 | EKG12_ITS ---
Test Reason : ABNL LABS Blood Pressure : / mmHG Vent. Rate : 094 BPM Atrial Rate : 094 BPM P-R Int : 206 ms QRS Dur : 096 ms QT Int : 374 ms P-R-T Axes : 036 -28 021 degrees QTc Int : 467 ms Normal sinus rhythm Possible Inferior infarct , age undetermined Abnormal ECG Confirmed by MINERVA RUBIN, ALLY ([id number]), science editor GRABIEL PLASENCIA ([id number] on 09/14/2019 10:54:38 AM Referred By: JAMES Confirmed By:ELENA PALMA MD
--- NOTE | 2019-09-11 14:28 | ED.RN ---
GOWN GIVEN TO THE PATIENT AND PATIENT REFUSED TO REMOVE T SHIRT STATING HE WAS COLD. GOWN WORN OVER T SHIRT.
[2019-09-11 14:35] VITALS: BMI 30.3
[2019-09-11 14:58] VITALS: BP 119/70; PULSE 103; RESP 17; O2SAT 94
[2019-09-11 15:41] VITALS: BP 142/68; PULSE 110; RESP 16; TEMP 37.6; O2SAT 94
[2019-09-11 15:44] VITALS: BMI 32.0
[2019-09-11] MEDS: 0.9% Normal Saline 1,000 ML 125 ML IV ×2 (15:45→23:36)
[2019-09-11 16:00] VITALS: PULSE 100
--- NOTE | 2019-09-11 16:31 | PCM.HP.STD ---
History of Present Illness Date of Admission: 09/11/19 Chief Complaint: Malaise The patient is a 58 year old M with a PMH as below who presents with general malaise and a fall which happened yesterday. It is been going on for the last several days and his was able to convince him to come into the hospital. 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 He has been coughing with drinking water and he is not able to tolerate a lot of other fluids but he did not realize that he was able to put the fluids he could not tolerate through his PEG tube. So he has had a low p.o. intake for the last several days and he presents to the hospital with acute renal failure. In the ER he was found to have a BUN of 127, sodium of 130, potassium 3.1, creatinine of 4.63, his creatinine at the end of August was 1.27. Also after his fall he is found to have an acute nondisplaced distal lateral fibular fracture on the right. 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 Q72H #12 patch 08/24/19 Gabapentin [Neurontin] 600 mg PO TID 09/11/19 Oxycodone HCl 5 ml PO Q6H PRN PRN #200 ml 09/11/19 Surgical History: Surgical History (Last Reviewed 08/31/19 @ 08:47 by Doreen Gomez) No history of previous surgery history PEG tube 0placement Onset Date: ~07/16/19 history vasular port placement Onset Date: ~07/16/19 Surgical History: noncontributory Smoking Status: Former smoker Tobacco Use: Cigarettes Alcohol: None Drugs: None - *Family History Paternal Family History: Family History (Last Reviewed 08/31/19 @ 08:47 by Doreen Gomez) Mother CVA (cerebral vascular accident) Father Heart disease Review of Systems Constitutional: Reports: Malaise. Denies: Chills, Fever, Weight Change HEENT: Denies: Head Aches, Sinus Congestion, Sinus Drainage Cardiovascular: Denies: Chest Pain, Palpitations Respiratory: Denies: Cough, Shortness of breath at rest, Sputum production Gastrointestinal: Denies: Abdominal Pain, Nausea, Vomiting Genitourinary: Denies: Dysuria Musculoskeletal: Reports: Leg Pain. Denies: Joint Pain, Joint Tenderness Skin: Denies: Rash, Wounds Neurological: Denies: Numbness, Tingling, Focal weakness Psychiatric: Denies: Anxiety, Depression Hematologic/ Lymphatic: Denies: Easy Bruising, Easy Bleeding VTE Information - Inpt Only VTE Present on Admission: No Patient Problems: Active and Suspected Problems (Last Reviewed 08/31/19 @ 08:47 by Doreen Gomez) Iron deficiency anemia (Acute) Hypokalemia (Acute) Tinnitus (Acute) Encounter for education (Acute) Iron deficiency (Acute) Chemotherapy management, encounter for (Acute) - Physical Exam Vitals/I&O's: Vital Signs Temp Pulse Resp BP Pulse Ox 99.6 F H 110 H 16 142/68 H 94 09/11/19 15:41 09/11/19 15:41 09/11/19 15:41 09/11/19 15:41 09/11/19 15:41 Oxygen Delivery Method Room Air Weight: 242 lb 15.19 oz Body Mass Index (BMI) 32.0 Intake and Output for Last 24 Hours 09/09/19 09/10/19 09/11/19 23:59 23:59 23:59 Intake Total 1000 / 1000 Balance 1000 / 1000 General: Alert, Oriented x3, Cooperative, No apparent distress HEENT: Atraumatic, PERRLA, EOMI, Normocephalic Oral: Dry Mucosa Neck: Supple, No JVD Lungs: Clear to auscultation, Normal air movement, No rhonchi, No wheeze, No rales Cardiovascular: Regular rate, Regular Rhythm, Normal S1, Normal S2, No murmurs Abdomen: Soft, Non Tender, Non-Distended, No Hepato-splenomegaly Extremities: No edema, Capillary Refill Less than 3 Seconds Skin: No rashes, No breakdown Musculoskeletal: - - Right lower extremity in a boot Neurological: Neuro grossly intact, Sensory exam intact to light touch and pain Psych/Mental Status: Normal Affect, Appropriate Laboratory Results 09/11/19 12:54: Sodium 130 L, Potassium 3.1 L, Chloride 81 L, Carbon Dioxide 41.0 H, Anion Gap 8, BUN 127 H*, Creatinine 4.63 H, Estim Creat Clear Calc 19.41, Est GFR (MDRD) Af Amer 17 L, Est GFR (MDRD) Non-Af 14 L, BUN/Creatinine Ratio 27.4 H, Glucose 134 H, Calcium 7.4 L, Total Bilirubin 0.30, AST 18, ALT 25, Alkaline Phosphatase 118 H, Total Protein 6.4, Albumin 2.6 L, Globulin 3.8, Albumin/Globulin Ratio 0.7 L Current Medications Heparin Sodium (Beef Lung) () 50 units IV UD PRN PRN Reason: Port-a-Cath (VAD)Heparin Flush Heparin Sodium (Porcine) (Heparin Na) 5,000 unit SC Q8 [facility] TO [facility] Sodium Chloride () 1,000 mls @ 125 mls/hr IV .Q8H [facility] Last Admin: 09/11/19 15:45 Dose: 125 mls/hr Documented by: Sodium Chloride () 250 mls @ 15 mls/hr IV .[id number] PRN PRN Reason: Saline Flush Melatonin (Melatonin) 3 mg PO QHS PRN PRN PRN Reason: INSOMNIA Ondansetron HCl (Zofran) 4 mg IV Q8H PRN PRN PRN Reason: NAUSEA/VOMITING Sodium Chloride () 10 - 40 ml IV UD PRN PRN Reason: Port-a-Cath (VAD) Flush Sodium Chloride (0.9% Nacl (Sterile) Posiflush) 10 - 40 ml IV UD PRN PRN Reason: Port access or dressing change Assessment/Plan All Active Problems (Last Reviewed 08/31/19 @ 08:47 by Doreen Gomez) Iron deficiency anemia (Acute) Hypokalemia (Acute) Tinnitus (Acute) Granular cell tumor (Acute) Encounter for education (Acute) Iron deficiency (Acute) Chemotherapy management, encounter for (Acute) Malignant neoplasm of larynx, unspecified (Acute) Dysphonia (Acute) Hemoptysis (Acute) 1. Acute renal failure secondary to poor oral intake -Reminded him that he can use his PEG tube for all liquids -Continue with IV fluids -Recheck BMP -Anticipate prerenal source and should improve quickly -We will continue with Jevity and consult nutrition for bolus volume 2. Right distal fibular nondisplaced fracture -Continue with walking boot -Outpatient follow-up with orthopedic surgery per the ER 3. Laryngeal cancer -He is status post radiation -Continue with his home pain regimen -He will follow-up with his radiation oncologist and his medical oncologist as an outpatient DVT: Heparin Code Visit Inpatient E&M: 72113 Init Hosp L2
[2019-09-11 20:18] VITALS: BP 110/64; PULSE 112; RESP 17; TEMP 37.1; O2SAT 98
--- NOTE | 2019-09-11 20:30 | NURSING ---
2015 Staff assist called to 320. Pt and GIS SPECIALIST going into bathroom when pt became shaky on his crutches from home. GIS SPECIALIST lowered pt to floor. No injuries. 2017 Vitals and blood glucose checked. Gait belt placed on pt, obtained walker and wheelchair. 4 staff members assisted pt to standing position with walker and assisted to bathroom followed with wheelchair. 2019 Pt then helped back to bed without further issues. 2024 heavy forging machine operator notified nursing anhydrous ammonia production supervisor. 2029 Dr. Meeks notified by propellant charge loader. Pt resting in bed with bed exit on.
[2019-09-11 20:46] LABS: Bedside Glucose 132 mg/dL (70-110)
--- NOTE | 2019-09-11 21:05 | NURSING ---
Pt refuses to be NPO. Insists on drinking small sips of water. States his cancer Dr says he could. Observed pt drinking sips, no coughing or choking noted.
[2019-09-11] MEDS: Heparin Injection (Vial) 5,000 UNIT/ML VIAL 5000 UNIT SC (21:28)
[2019-09-11] MEDS: Jevity 1.5. 1,000 ML Bottle 250 ML GT (21:28)
[2019-09-11] MEDS: Atorvastatin Calcium 40 MG Tablet GT (21:28)
[2019-09-11] MEDS: Gabapentin 300 MG Capsule 600 MG PO (21:29)
[2019-09-11 21:35] VITALS: BP 113/66; PULSE 106; RESP 16; TEMP 37.1; O2SAT 95
[2019-09-12] MEDS: Jevity 1.5. 1,000 ML Bottle 250 ML GT ×2 (05:51→08:55)
[2019-09-12] MEDS: Heparin Injection (Vial) 5,000 UNIT/ML VIAL 5000 UNIT SC ×3 (05:51→21:53)
[2019-09-12] MEDS: Gabapentin 300 MG Capsule 600 MG PO ×3 (05:51→21:53)
[2019-09-12 06:07] VITALS: BP 113/55; PULSE 100; RESP 16; TEMP 36.6; O2SAT 96
[2019-09-12 06:48] LABS: Absolute Lymphocyte Count 0.23 X10^3/uL (0.83-4.51); Absolute Neutrophil Count 5.1 X10^3/uL (2.0-7.7); Hematocrit 22.3 % (40-54); Hemoglobin 7.5 g/dL (13.0-16.5); Lymphocyte # 0.23 X10^3/ul (4.0); Lymphocyte % 3.9 % (19-41); Mean Corp Hgb Conc 33.6 g/dL (32-36); Mean Corpuscular Hgb 29.5 pg (27.0-32.0); Mean Corpuscular Volume 87.8 fL (80-94); Mean Platelet Vol. 10.6 fl (6.2-12.0); Monocyte# 0.55 X10^3/uL; Monocyte% 9.3 % (0-10); NRBC Flagged by Analyzer 0 % (0-5); Neutrophil # 5.13 X10^3/uL (2.7-7.7); Neutrophil % 86.5 % (47-70); POSITIVE COUNT YES; POSITIVE DIFFERENTIAL YES; Platelet Count 80 K/mm3 (150-450); RBC Distribution Width SD 44.3 fl (35.1-43.9); Red Blood Count 2.54 M/mm3 (4.6-6.2); White Blood Count 5.9 K/mm3 (4.4-11.0)
[2019-09-12 06:54] LABS: Differential Indicated SCAN CRITERIA MET
[2019-09-12 07:18] LABS: Anion Gap 7 (5-15); BUN 109 mg/dL (7-18); BUN/Creat Ratio 27.8 RATIO (10-20); Calcium,Total 7.4 mg/dL (8.5-10.1); Chloride 87 mmol/L (98-107); Creatinine, Serum 3.92 mg/dL (0.70-1.30); Differential Comment SCANNED; EST Glomerular Filtration Rate 17 mL/min (>60); Est Glom Filt Rate - Afr Amer 20 mL/min (>60); Estimated Creatinine Clearance 22.93 ml/min; Glucose 122 mg/dL (74-106); Platelet Estimate MOD DEC (ADEQ); Potassium 2.8 mmol/L (3.5-5.1); Sodium Level 131 mmol/L (136-145)
[2019-09-12 07:45] LABS: Magnesium 1.9 mg/dL (1.6-2.6)
[2019-09-12] MEDS: 0.9% Normal Saline 1,000 ML 125 ML IV ×2 (08:42→16:17)
[2019-09-12] MEDS: Potassium Chloride 10mEq/100mL 10 MEQ/100 ML IV.SOLN. 100 MEQ IV BOLUS ×4 (08:51→12:20)
[2019-09-12] MEDS: fentaNYL 25 MCG Patch TRANSDERM. (08:51)
[2019-09-12 09:05] VITALS: BP 115/64; PULSE 97; RESP 18; TEMP 37.2; O2SAT 97
--- NOTE | 2019-09-12 09:22 | PN_ITS ---
Patient Problems: Active and Suspected Problems (Last Reviewed 08/31/19 @ 08:47 by Doreen Gomez) Iron deficiency anemia (Acute) Hypokalemia (Acute) Tinnitus (Acute) Encounter for education (Acute) Iron deficiency (Acute) Chemotherapy management, encounter for (Acute) Reason for Visit: fall Subjective: Still with sore throat, that he has had for several weeks now. Has been able to tolerate tube feeds. Vitals/I&O's: Vital Signs Temp Pulse Resp BP Pulse Ox 37.2 C 97 18 115/64 97 09/12/19 09:05 09/12/19 09:05 09/12/19 09:05 09/12/19 09:05 09/12/19 09:05 Oxygen Delivery Method Room Air Weight: 110.2 kg Body Mass Index (BMI) 32.0 Intake and Output for Last 24 Hours 09/10/19 09/11/19 09/12/19 23:59 23:59 23:59 Intake Total 2521.25 / 2521.25 1550 / 1550 Output Total 200 / 200 1550 / 1550 Balance 2321.25 / 2321.25 0 / 0 General: Alert, No apparent distress HEENT: Atraumatic, Normocephalic Oral: Moist Mucosa, No Gingival or Mucosal Lesions/ Ulcerations Neck: No Nodes, Trachea Midline Lungs: Clear to auscultation, Normal air movement, No rhonchi, No wheeze, No rales Cardiovascular: Regular rate, Regular Rhythm, Normal S1, Normal S2, No murmurs Abdomen: Bowel Sounds Present, Soft, Non Tender, Non-Distended, No Hepato- splenomegaly, - - PEG tube in place. Insertion site clear and dry. Psych/Mental Status: Normal Affect, Appropriate Laboratory Results 09/11/19 12:54: Sodium 130 L, Potassium 3.1 L, Chloride 81 L, Carbon Dioxide 41.0 H, Anion Gap 8, BUN 127 H*, Creatinine 4.63 H, Estim Creat Clear Calc 19.41, Est GFR (MDRD) Af Amer 17 L, Est GFR (MDRD) Non-Af 14 L, BUN/Creatinine Ratio 27.4 H, Glucose 134 H, Calcium 7.4 L, Total Bilirubin 0.30, AST 18, ALT 25, Alkaline Phosphatase 118 H, Total Protein 6.4, Albumin 2.6 L, Globulin 3.8, Albumin/Globulin Ratio 0.7 L 09/11/19 20:28: POC Glucose 132 H 09/12/19 06:13: Sodium 131 L, Potassium 2.8 L, Chloride 87 L, Carbon Dioxide 37.0 H, Anion Gap 7, BUN 109 H*, Creatinine 3.92 H, Estim Creat Clear Calc 22.93, Est GFR (MDRD) Af Amer 20 L, Est GFR (MDRD) Non-Af 17 L, BUN/Creatinine Ratio 27.8 H, Glucose 122 H, Calcium 7.4 L 09/12/19 06:13: WBC 5.9, RBC 2.54 L, Hgb 7.5 L, Hct 22.3 L, MCV 87.8, MCH 29.5, MCHC 33.6, RDW Std Deviation 44.3 H, RDW Coeff of Nicholas 14.0, Plt Count 80 L, MPV 10.6, Immature Gran % (Auto) 0.300, Neut % (Auto) 86.5 H, Lymph % (Auto) 3.9 L, [place] % (Auto) 9.3, Eos % (Auto) 0.0, Baso % (Auto) 0.0, Absolute Neuts (auto) 5.1, Absolute Lymphs (auto) 0.23 L, Nucleated RBC % 0, Differential Comment SCANNED, Platelet Estimate MOD 09/12/19 06:13: Magnesium 1.9 Current Medications Atorvastatin Calcium (Lipitor) 40 mg GT QHS [facility] Last Admin: 09/11/19 21:28 Dose: 40 mg Documented by: Enteral Nutritional Formula (Jevity 1.5) 250 ml GT 5X/DAY [facility] Last Admin: 09/12/19 08:55 Dose: 250 ml Documented by: Fentanyl (Duragesic Patch) 25 mcg TRANSDERM. Q72H [facility] Last Admin: 09/12/19 08:51 Dose: 25 mcg Documented by: Gabapentin (Neurontin) 600 mg PO TID [facility] Last Admin: 09/12/19 05:51 Dose: 600 mg Documented by: Heparin Sodium (Beef Lung) () 50 units IV UD PRN PRN Reason: Port-a-Cath (VAD)Heparin Flush Heparin Sodium (Porcine) (Heparin Na) 5,000 unit SC Q8 [facility] Last Admin: 09/12/19 05:51 Dose: 5,000 unit Documented by: Sodium Chloride () 1,000 mls @ 125 mls/hr IV .Q8H [facility] Last Admin: 09/12/19 08:42 Dose: 125 mls/hr Documented by: Sodium Chloride () 250 mls @ 15 mls/hr IV .[id number] PRN PRN Reason: Saline Flush Potassium Chloride () 10 meq in 100 mls @ 100 mls/hr IV BOLUS Q1H [facility] Stop: 09/12/19 11:59 Last Admin: 09/12/19 08:51 Dose: 100 mls/hr Documented by: Lidocaine/Prilocaine (Emla Cream W/Tegaderm) 0 gm TOPICAL DAILY PRN PRN; Protocol PRN Reason: for port access Melatonin (Melatonin) 3 mg PO QHS PRN PRN PRN Reason: INSOMNIA Ondansetron HCl (Zofran) 4 mg IV Q8H PRN PRN PRN Reason: NAUSEA/VOMITING Oxycodone HCl (Oxyfast) 5 mg PO Q6H PRN PRN PRN Reason: Pain Score 1-10/10 Sodium Chloride () 10 - 40 ml IV UD PRN PRN Reason: Port-a-Cath (VAD) Flush Sodium Chloride (0.9% Nacl (Sterile) Posiflush) 10 - 40 ml IV UD PRN PRN Reason: Port access or dressing change STROKE Vital Signs/Narrative: Vital Signs Temp Pulse Resp BP Pulse Ox 09/12/19 09:05 37.2 C 97 18 115/64 97 09/12/19 06:07 36.6 C 100 16 113/55 L 96 Medical Necessity - Tobacco Use Smoking Status: Former smoker Tobacco Use: Cigarettes Assessment/Plan All Active Problems (Last Reviewed 08/31/19 @ 08:47 by Doreen Gomez) Iron deficiency anemia (Acute) Hypokalemia (Acute) Tinnitus (Acute) Granular cell tumor (Acute) Encounter for education (Acute) Iron deficiency (Acute) Chemotherapy management, encounter for (Acute) Malignant neoplasm of larynx, unspecified (Acute) Dysphonia (Acute) Hemoptysis (Acute) 1. MIKEL * presumed prerenal +/- ATN * improved slightly today, though not at baseline yet (1.26 on 08/31) * continue IVF * dw patient about administering fluids through PEG, particularly when he cannot drink. 2. Dysphagia * he has been coughing when drinking * cs ST for eval 3. Right distal fibular fxr. * walking boot * f/u with ortho as outpt 4. Laryngeal cancer * follow up with rad onc and med onc as outpt. 5. VTE prophylaxis: SQ heparin. Code Visit Inpatient E&M: 30948 Subs Hosp L2
[2019-09-12] MEDS: oxyCODONE Soln 5 MG/0.25 ML PO.SYRINGE PO ×2 (09:26→16:48)
--- NOTE | 2019-09-12 11:27 | PCM.NTREPORT ---
Nutrition Therapy Report - History Nutrition Services has been consulted to:: Manage enteral nutrition Current diet / nutrition support order:: 250 mL Jevity 1.5 5x/day to provide 1875 calories, 80 g protein per day - Anthropometric Measurements Height:: 6 ft 1 in Weight:: 110.2 kg - Reports usual wt as 104 kg Body Mass Index (BMI):: 32.0 - Relevant Labs Relevant Labs:: RBC 2.54 M/mm3 (4.6-6.2) L 09/12/19 06:13 Hgb 7.5 g/dL (13.0-16.5) L 09/12/19 06:13 Hct 22.3 % (40-54) L 09/12/19 06:13 RDW Std Deviation 44.3 fl (35.1-43.9) H 09/12/19 06:13 Plt Count 80 K/mm3 (150-450) L 09/12/19 06:13 Neut % (Auto) 86.5 % (47-70) H 09/12/19 06:13 Lymph % (Auto) 3.9 % (19-41) L 09/12/19 06:13 Absolute Lymphs (auto) 0.23 X10^3/uL (0.83-4.51) L 09/12/19 06:13 Sodium 131 mmol/L (136-145) L 09/12/19 06:13 Potassium 2.8 mmol/L (3.5-5.1) L 09/12/19 06:13 Chloride 87 mmol/L (98-107) L 09/12/19 06:13 Carbon Dioxide 37.0 mmol/L (21.0-32.0) H 09/12/19 06:13 BUN 109 mg/dL (7-18) H* 09/12/19 06:13 Creatinine 3.92 mg/dL (0.70-1.30) H 09/12/19 06:13 Est GFR (MDRD) Af Amer 20 mL/min (>60) L 09/12/19 06:13 Est GFR (MDRD) Non-Af 17 mL/min (>60) L 09/12/19 06:13 BUN/Creatinine Ratio 27.8 RATIO (10-20) H 09/12/19 06:13 Glucose 122 mg/dL (74-106) H 09/12/19 06:13 Calcium 7.4 mg/dL (8.5-10.1) L 09/12/19 06:13 Alkaline Phosphatase 118 U/L (45-117) H 09/11/19 12:54 Albumin 2.6 g/dL (3.2-5.0) L 09/11/19 12:54 Albumin/Globulin Ratio 0.7 RATIO (0.9-2.4) L 09/11/19 12:54 - Assessment Food / Nutrition-Related History:: Pt reports taking all nutrition via PEG at home. Aims for 4-5 cartons of Jevity 1.5/day plus 1 bottle of Boost or Premier Protein for extra protein. Reports only flushing w/ 50mL H2O w/ each feeding, estimated free fluid from flushes per day ~250 mL. For 5 cartons of Jevity 1.5, pt roughly getting ~900mL water for a total of 1150mL water/day. 5 cartons of Jevity 1.5 providing 1777.5 calories, 75 g protein/day. Pt reports stable wt- weighs self daily. Recent UBW ~230#. CBW 242.9# w/ LLE/RLE edema noted. Anticipate wt loss if edema improves. GRAPHIC COORDINATOR evaluated this date- will maintain NPO w/ sips of water for oral comfort. - Nutrition Diagnosis Problem / Etiology / Signs & Symptoms (PES):: Inadequate fluid intake r/t NPO status/need for all nutrition via PEG as evidenced by reported flushing w/ only 50mL H2O w/ each feeding (~250 mL)and ~900mL water provided from formula for a total of 1150mL water/day, which meets ~55% of patient's estimated fluid needs. Evidence of Malnutrition Exists:: No - Nutrition Intervention Nutrition Prescription:: 9380-6114 calories/day, 100-124 g protein/day, 2100mL fluid/day. (Used 22-25 calories/kg of IBW (83kg) and 1.2 g protein per UBW (104 kg) per ASPEN guidelines to estimate nutritional needs) - Food / Nutrient Delivery Interventions Summary of nutrition intervention:: Provided written recommendations to patient for tube feeds at home: 6 cartons of Jevity 1.5 as tolerated per day (2 cartons/feeding). 150mL H2O flush (3 syringes he has at home) before and after each feeding to provide an additional 900mL fluid for a total of 1980mL/day. Nutrition support ordered as / adjusted to:: Adjusted tube feeds as ordered to 240mL Jevity 1.5 6x/day to provide 2160 calories, 92 g protein. Recommend 80mL H2O flush before and after each feeding to provide 2060mL total fluid/day. Daily weights ordered. Nutrition education provided?: Yes - See dietitan assessment for further details - MNT Monitoring Further MNT monitoring and evaluation required?: Yes MNT Follow-up in:: 3-5 days
[2019-09-12 11:38] VITALS: BMI 32.0
[2019-09-12] MEDS: Jevity 1.5. 1,000 ML Bottle 240 ML GT ×3 (12:26→21:54)
[2019-09-12 16:23] VITALS: BP 129/71; PULSE 99; RESP 20; TEMP 37; O2SAT 97
[2019-09-12 19:27] LABS: Bacteria 0 SEEN /hpf (None Seen); Mucous, Urine 0 SEEN /hpf (<or=2+); Squamous Epithelial Cells - UA 0 SEEN /hpf (0-5)
[2019-09-12 19:29] LABS: Color, Urine Straw (Yellow); Glucose, Dipstick Normal (Normal); Ketone-Dipstick Negative (Negative); Leukocyte Esterase-Dipstick Negative /ul (Negative); Nitrite-Dipstick Negative (Negative); Occult Blood-Urine Negative /ul (Negative); Protein-Dipstick Negative (Negative); Urine Bilirubin Dipstick Negative (Negative); Urine Clarity Clear (Clear); Urine Urobilinogen Normal (Normal)
[2019-09-12 19:40] LABS: Red Blood Cells-Urine 0-5 SEEN /hpf (0-5); White Blood Cells 0-5 SEEN /hpf (0-5)
[2019-09-12 21:43] LABS: Urine Sodium 75 mmol/L (Not Establ.)
[2019-09-12 21:51] VITALS: BP 132/56; PULSE 104; RESP 18; TEMP 37.2; O2SAT 98
[2019-09-12] MEDS: Atorvastatin Calcium 40 MG Tablet GT (21:53)
[2019-09-13] MEDS: 0.9% Normal Saline 1,000 ML 125 ML IV ×3 (00:17→16:09)
[2019-09-13] MEDS: oxyCODONE Soln 5 MG/0.25 ML PO.SYRINGE PO ×4 (00:20→22:30)
[2019-09-13 03:54] VITALS: BP 113/63; PULSE 112; RESP 16; TEMP 37.4; O2SAT 96
[2019-09-13 05:57] LABS: Absolute Lymphocyte Count 0.42 X10^3/uL (0.83-4.51); Basophil# 0.01 X10^3/uL; Basophil% 0.1 % (0-1); Hematocrit 22.6 % (40-54); Hemoglobin 7.5 g/dL (13.0-16.5); Lymphocyte # 0.42 X10^3/ul (4.0); Mean Corp Hgb Conc 33.2 g/dL (32-36); Mean Corpuscular Hgb 29.8 pg (27.0-32.0); Mean Corpuscular Volume 89.7 fL (80-94); Mean Platelet Vol. 9.8 fl (6.2-12.0); Monocyte# 0.53 X10^3/uL; Monocyte% 7.5 % (0-10); NRBC Flagged by Analyzer 0 % (0-5); Neutrophil # 6.03 X10^3/uL (2.7-7.7); Neutrophil % 85.8 % (47-70); POSITIVE DIFFERENTIAL YES; Platelet Count 100 K/mm3 (150-450); RBC Distribution Width CV 13.8 % (11.6-14.6); RBC Distribution Width SD 45.3 fl (35.1-43.9); Red Blood Count 2.52 M/mm3 (4.6-6.2)
[2019-09-13] MEDS: Gabapentin 300 MG Capsule 600 MG PO ×3 (06:12→21:34)
[2019-09-13] MEDS: 0.9% Saline Lock 10 ML Syringe IV (06:12)
[2019-09-13] MEDS: Heparin Injection (Vial) 5,000 UNIT/ML VIAL 5000 UNIT SC ×3 (06:12→21:33)
[2019-09-13] MEDS: Jevity 1.5. 1,000 ML Bottle 240 ML GT ×6 (06:13→22:17)
[2019-09-13 06:17] LABS: Anion Gap 6 (5-15); BUN 86 mg/dL (7-18); BUN/Creat Ratio 25.7 RATIO (10-20); Calcium,Total 7.5 mg/dL (8.5-10.1); Chloride 93 mmol/L (98-107); Creatinine, Serum 3.35 mg/dL (0.70-1.30); EST Glomerular Filtration Rate 20 mL/min (>60); Est Glom Filt Rate - Afr Amer 24 mL/min (>60); Estimated Creatinine Clearance 26.83 ml/min; Glucose 111 mg/dL (74-106); Potassium 3.3 mmol/L (3.5-5.1); Sodium Level 135 mmol/L (136-145)
[2019-09-13 06:26] LABS: Differential Indicated SCAN CRITERIA MET
--- NOTE | 2019-09-13 08:35 | PN_ITS ---
Patient Problems: Active and Suspected Problems (Last Reviewed 08/31/19 @ 08:47 by Doreen Gomez) Iron deficiency anemia (Acute) Hypokalemia (Acute) Tinnitus (Acute) Encounter for education (Acute) Iron deficiency (Acute) Chemotherapy management, encounter for (Acute) Reason for Visit: MIKEL Vitals/I&O's: Vital Signs Temp Pulse Resp BP Pulse Ox 37.4 C H 112 H 16 113/63 96 09/13/19 03:54 09/13/19 03:54 09/13/19 03:54 09/13/19 03:54 09/13/19 03:54 Oxygen Delivery Method Room Air Weight: 109.2 kg Body Mass Index (BMI) 32.0 Intake and Output for Last 24 Hours 09/11/19 09/12/19 09/13/19 23:59 23:59 23:59 Intake Total 2521.25 / 2521.25 5463.75 / 6163.75 2400 / 2400 Output Total 200 / 200 2850 / 3900 2400 / 2400 Balance 2321.25 / 2321.25 2613.75 / 2263.75 0 / 0 General: Oriented x3, No apparent distress HEENT: Atraumatic, Normocephalic Oral: Moist Mucosa, No Gingival or Mucosal Lesions/ Ulcerations Neck: No Nodes, Trachea Midline Lungs: Clear to auscultation, Normal air movement, No rhonchi, No wheeze, No rales Cardiovascular: Regular rate, Regular Rhythm, Normal S1, Normal S2, No murmurs Abdomen: Bowel Sounds Present, Soft, Non Tender, Non-Distended, No Hepato- splenomegaly Extremities: No edema, No Calf Tenderness Psych/Mental Status: Normal Affect, Appropriate Laboratory Results 09/12/19 15:00: Urine Color Straw, Urine Clarity Clear, Urine pH 7.0, Ur Specific Rev[place] 1.010, Urine Protein Negative, Urine Glucose (UA) Normal, Urine Ketones Negative, Urine Occult Blood Negative, Urine Nitrite Negative, Urine Bilirubin Negative, Urine Urobilinogen Normal, Ur Leukocyte Esterase Negative, Urine RBC 0-5 SEEN, Urine WBC 0-5 SEEN, Ur Squamous Epith Cells 0 SEEN, Urine Bacteria 0 SEEN, Urine Mucus 0 SEEN 09/12/19 21:25: Eos Smear Total Cells Pending 09/12/19 21:25: Urine Creatinine 31.70 09/12/19 21:25: Ur Random Sodium 75 09/13/19 05:45: WBC 7.0, RBC 2.52 L, Hgb 7.5 L, Hct 22.6 L, MCV 89.7, MCH 29.8, MCHC 33.2, RDW Std Deviation 45.3 H, RDW Coeff of Nicholas 13.8, Plt Count 100 L, MPV 9.8, Immature Gran % (Auto) 0.600, Neut % (Auto) 85.8 H, Lymph % (Auto) 6.0 L, [place] % (Auto) 7.5, Eos % (Auto) 0.0, Baso % (Auto) 0.1, Absolute Neuts (auto) 6.0, Absolute Lymphs (auto) 0.42 L, Nucleated RBC % 0 09/13/19 05:45: Sodium 135 L, Potassium 3.3 L, Chloride 93 L, Carbon Dioxide 36.0 H, Anion Gap 6, BUN 86 H, Creatinine 3.35 H, Estim Creat Clear Calc 26.83, Est GFR (MDRD) Af Amer 24 L, Est GFR (MDRD) Non-Af 20 L, BUN/Creatinine Ratio 25.7 H, Glucose 111 H, Calcium 7.5 L Current Medications Atorvastatin Calcium (Lipitor) 40 mg GT QHS [facility] Last Admin: 09/12/19 21:53 Dose: 40 mg Documented by: Enteral Nutritional Formula (Jevity 1.5) 240 ml GT 6X/DAY [facility] Last Admin: 09/13/19 06:13 Dose: 240 ml Documented by: Fentanyl (Duragesic Patch) 25 mcg TRANSDERM. Q72H [facility] Last Admin: 09/12/19 08:51 Dose: 25 mcg Documented by: Gabapentin (Neurontin) 600 mg PO TID [facility] Last Admin: 09/13/19 06:12 Dose: 600 mg Documented by: Heparin Sodium (Beef Lung) () 50 units IV UD PRN PRN Reason: Port-a-Cath (VAD)Heparin Flush Heparin Sodium (Porcine) (Heparin Na) 5,000 unit SC Q8 [facility] Last Admin: 09/13/19 06:12 Dose: 5,000 unit Documented by: Sodium Chloride () 1,000 mls @ 125 mls/hr IV .Q8H [facility] Last Admin: 09/13/19 00:17 Dose: 125 mls/hr Documented by: Sodium Chloride () 250 mls @ 15 mls/hr IV .[id number] PRN PRN Reason: Saline Flush Lidocaine/Prilocaine (Emla Cream W/Tegaderm) 0 gm TOPICAL DAILY PRN PRN; Protocol PRN Reason: for port access Melatonin (Melatonin) 3 mg PO QHS PRN PRN PRN Reason: INSOMNIA Ondansetron HCl (Zofran) 4 mg IV Q8H PRN PRN PRN Reason: NAUSEA/VOMITING Oxycodone HCl (Oxyfast) 5 mg PO Q6H PRN PRN PRN Reason: Pain Score 1-10 Last Admin: 09/13/19 06:31 Dose: 5 mg Documented by: Sodium Chloride () 10 - 40 ml IV UD PRN PRN Reason: Port-a-Cath (VAD) Flush Last Admin: 09/13/19 06:12 Dose: 20 ml Documented by: Sodium Chloride (0.9% Nacl (Sterile) Posiflush) 10 - 40 ml IV UD PRN PRN Reason: Port access or dressing change Medical Necessity - Tobacco Use Smoking Status: Former smoker Tobacco Use: Cigarettes Assessment/Plan All Active Problems (Last Reviewed 08/31/19 @ 08:47 by Droeen Gomez) Iron deficiency anemia (Acute) Hypokalemia (Acute) Tinnitus (Acute) Granular cell tumor (Acute) Encounter for education (Acute) Iron deficiency (Acute) Chemotherapy management, encounter for (Acute) Malignant neoplasm of larynx, unspecified (Acute) Dysphonia (Acute) Hemoptysis (Acute) 1. MIKEL * FeNa 7.08 consistent w ATN * improving, though not at baseline yet (1.26 on 08/31) * continue IVF * dw patient about administering fluids through PEG, particularly when he cannot drink. 2. Dysphagia * he has been coughing when drinking * ST evaluation, recommending NPO but drinking water for quality of life. 3. Right distal fibular fxr. * walking boot * f/u with ortho as outpt 4. Laryngeal cancer * follow up with rad onc and med onc as outpt. 5. VTE prophylaxis: SQ heparin. Code Visit Inpatient E&M: 72630 Subs Hosp L2
[2019-09-13 08:42] VITALS: BP 112/51; PULSE 105; RESP 18; TEMP 37.1; O2SAT 94
[2019-09-13 16:04] VITALS: BP 123/74; PULSE 95; RESP 18; TEMP 36.9; O2SAT 97
[2019-09-13 21:31] VITALS: BP 112/57; PULSE 109; RESP 18; TEMP 37.1; O2SAT 96
[2019-09-13] MEDS: Atorvastatin Calcium 40 MG Tablet GT (21:33)
[2019-09-14] MEDS: 0.9% Normal Saline 1,000 ML 125 ML IV ×2 (00:34→08:27)
[2019-09-14 03:22] VITALS: BP 105/51; PULSE 103; RESP 16; TEMP 37.3; O2SAT 94
[2019-09-14] MEDS: Gabapentin 300 MG Capsule 600 MG PO ×2 (06:23→13:51)
[2019-09-14] MEDS: Heparin Injection (Vial) 5,000 UNIT/ML VIAL 5000 UNIT SC ×2 (06:23→13:49)
[2019-09-14] MEDS: Jevity 1.5. 1,000 ML Bottle 240 ML GT ×3 (06:24→11:42)
[2019-09-14] MEDS: 0.9% Saline Lock 10 ML Syringe IV ×2 (06:24→14:31)
[2019-09-14 06:30] LABS: Anion Gap 5 (5-15); BUN 67 mg/dL (7-18); BUN/Creat Ratio 22.6 RATIO (10-20); Calcium,Total 7.2 mg/dL (8.5-10.1); Chloride 94 mmol/L (98-107); Creatinine, Serum 2.96 mg/dL (0.70-1.30); EST Glomerular Filtration Rate 23 mL/min (>60); Est Glom Filt Rate - Afr Amer 28 mL/min (>60); Estimated Creatinine Clearance 30.37 ml/min; Glucose 100 mg/dL (74-106); Sodium Level 135 mmol/L (136-145)
[2019-09-14 07:36] VITALS: PULSE 80
[2019-09-14] MEDS: Potassium Chloride 10mEq/100mL 10 MEQ/100 ML IV.SOLN. 100 MEQ IV BOLUS ×4 (08:03→13:02)
[2019-09-14] MEDS: oxyCODONE Soln 5 MG/0.25 ML PO.SYRINGE PO (08:36)
--- NOTE | 2019-09-14 09:13 | PCM.DC ---
- Discharge Diagnoses Current Active Problems: Current Active and Chronic Problems (Last Reviewed 08/31/19 @ 08:47 by Doreen Gomez) Iron deficiency anemia (Acute) Hypokalemia (Acute) Tinnitus (Acute) Encounter for education (Acute) Iron deficiency (Acute) Chemotherapy management, encounter for (Acute) Carcinoma of supraglottis (Chronic) You will use the following diet at home:: Other - Jevity 1.5 5 times per day. Flush with 200 cc of water each time. Discharge Activity: - - weight bearing as tolerated. Walking boot with activity. Call your doctor if you observe: - - increased ankle pain. Allergies/Adverse Reactions: Allergies No Known Allergies Allergy (Verified 09/11/19 12:23) Medications to take at Discharge Rosuvastatin Calcium [Crestor] 20 mg PO DAILY 06/18/19 Ubidecarenone [Co Q-10] 10 mg PO DAILY 07/09/19 Lidocaine/Prilocaine [Lidocaine-Prilocaine Cream] 1 applicatio TP DAILY PRN PRN 30 Days #1 tube 07/15/19 fentaNYL patch [Duragesic patch] 25 mcg TRANSDERM. Q72H #12 patch 08/24/19 Gabapentin [Neurontin] 600 mg PO TID 09/11/19 Oxycodone HCl 5 ml PO Q6H PRN PRN #200 ml 09/11/19 Potassium Chl Soln 20 meq GT DAILY #5 udc 09/14/19 The following prescriptions were given: Potassium Chl Soln 20 meq GT DAILY #5 udc Transmission Status: Received by [id number] Orders to be completed after discharge: Basic Metabolic Profile (BMP) Time Frame: 1 Week, Facility: [facility], Location: Laboratory Primary Care Physician: Federico Maradiaga DO [Primary Care Provider] - Within 2 Weeks Test Results: Test results from this visit will be discussed in further detail at your follow-up appointment, if applicable. Please Follow Up With: Chacho Lew MD When: 09/15/2019, appointment alreay scheduled Please Follow Up With: Chacho Villalobos DO - Orthopaedics. When: 1-2 weeks. for follow up on fibular fracture. Proposed Discharge Date: 09/14/19
--- NOTE | 2019-09-14 09:19 | PCM.DC.SUM ---
Discharge Date and Diagnosis - Problem List Patient Problems: Active and Suspected Problems (Last Reviewed 08/31/19 @ 08:47 by Doreen Gomez) Hypokalemia (Acute) MIKEL (acute kidney injury) (Acute) Closed right fibular fracture (Acute) Date of Admission: 09/11/19 Date of Discharge: 09/14/19 - Primary Discharge Diagnosis Active and Suspected Problems (Last Reviewed 08/31/19 @ 08:47 by Doreen Gomez) Iron deficiency anemia (Acute) Hypokalemia (Acute) Tinnitus (Acute) Encounter for education (Acute) Iron deficiency (Acute) Chemotherapy management, encounter for (Acute) 1. MIKEL FeNa 7.08 consistent w ATN improving, though not at baseline yet (1.26 on 08/31) continue IVF dw patient about administering fluids through PEG, particularly when he cannot drink. 2. Dysphagia he has been coughing when drinking ST evaluation, recommending NPO but drinking water for quality of life. 3. Right distal fibular fxr. walking boot f/u with ortho as outpt 4. Laryngeal cancer follow up with rad onc and med onc as outpt. - Secondary Discharge Diagnosis Chronic Problems (Last Reviewed 08/31/19 @ 08:47 by Doreen Gomez) Carcinoma of supraglottis (Chronic) Hospital Course and Treatment Imaging Results: Clinical Impression(s) from Imaging Studies Foot X-Ray 09/11/19 12:34 IMPRESSION: Degenerative arthrosis Electronically Signed: Sukhjinder Anthony MD at 13:29 EST , Service support , Tibia/Fibula X-Ray 09/11/19 12:34 IMPRESSION: Cortical irregularity in the distal fibula consistent with old healed fracture, there is cortical irregularity in the distal lateral fibula suggesting an acute nondisplaced fractures present. There is associated extensive soft tissue swelling Acute minimally displaced proximal fibular fracture Sclerotic area within the proximal lateral tibia likely bone infarct. However if pain can be localized to this area more sinister underlying process cannot be excluded. Electronically Signed: Sukhjinder Anthony MD at 13:35 EST , Service support , Ankle X-Ray 09/11/19 13:10 IMPRESSION: Old healed distal fibular fracture with likely new acute nondisplaced fracture in the distal lateral fibula best seen on the AP film. Extensive diffuse soft tissue swelling Calcaneal spurs Electronically Signed: Sukhjinder Anthony MD at 13:32 EST , Service support , Operations: None Procedures: None Summary of Care Provided: The patient is a 58 year old M presents with malaise. Patient has a history of laryngeal cancer which he is undergoing radiation therapy for. Patient not able to tolerate much in way of drinking but does have a PEG tube. Has been taking tube feeds but not administering fluid through his PEG tube. Patient was found to have a creatinine of 4.63 and in August, his creatinine was 1.27. Patient had a fall at home and was noted to have a nondisplaced distal lateral fibular fracture on the right. Patient was put in a walking boot and instructed to follow-up with orthopedics. The patient did receive IV fluids and his creatinine has steadily improved. His creatinine is 2.96. Though not normal and not near his baseline, it shows improvements. Patient advised to continue to administer fluids through his PEG tube or patient is still actively receiving Jevity. Patient will need to have a lab work done and we can patient will be given a prescription for that to be followed with his primary care provider. He also had issues with hypokalemia and has been receiving potassium replacements. Patient will be on 20mEq of potassium down his PEG tube for the next 5 days. If creatinine does not improve over the next several weeks, would recommend follow-up with nephrology as outpatient. Patient's renal failure is consistent with acute tubular necrosis. [] Patient Problems: Active and Suspected Problems (Last Reviewed 08/31/19 @ 08:47 by Doreen Gomez) Hypokalemia (Acute) MIKEL (acute kidney injury) (Acute) Closed right fibular fracture (Acute) - Physical Exam Vitals/I&O's: Vital Signs Temp Pulse Resp BP Pulse Ox 37.3 C H 80 16 105/51 L 94 09/14/19 03:22 09/14/19 07:36 09/14/19 03:22 09/14/19 03:22 09/14/19 03:22 Oxygen Delivery Method Room Air Weight: 109 kg Body Mass Index (BMI) 32.0 Intake and Output for Last 24 Hours 09/12/19 09/13/19 09/14/19 23:59 23:59 23:59 Intake Total 5463.75 / 6163.75 8705 / 9605 3585.42 / 3585.42 Output Total 2850 / 3900 4400 / 5700 2750 / 2750 Balance 2613.75 / 2263.75 4305 / 3905 835.42 / 835.42 General: Alert, Cooperative, No apparent distress HEENT: Atraumatic, Normocephalic Oral: Moist Mucosa, No Gingival or Mucosal Lesions/ Ulcerations Psych/Mental Status: Normal Affect, Appropriate Laboratory Results 09/14/19 05:47: Sodium 135 L, Potassium 3.0 L, Chloride 94 L, Carbon Dioxide 36.0 H, Anion Gap 5, BUN 67 H, Creatinine 2.96 H, Estim Creat Clear Calc 30.37, Est GFR (MDRD) Af Amer 28 L, Est GFR (MDRD) Non-Af 23 L, BUN/Creatinine Ratio 22.6 H, Glucose 100, Calcium 7.2 L Current Medications Atorvastatin Calcium (Lipitor) 40 mg GT QHS [facility] Last Admin: 09/13/19 21:33 Dose: 40 mg Documented by: Enteral Nutritional Formula (Jevity 1.5) 240 ml GT 6X/DAY [facility] Last Admin: 09/14/19 08:37 Dose: 240 ml Documented by: Fentanyl (Duragesic Patch) 25 mcg TRANSDERM. Q72H [facility] Last Admin: 09/12/19 08:51 Dose: 25 mcg Documented by: Gabapentin (Neurontin) 600 mg PO TID [facility] Last Admin: 09/14/19 06:23 Dose: 600 mg Documented by: Heparin Sodium (Beef Lung) () 50 units IV UD PRN PRN Reason: Port-a-Cath (VAD)Heparin Flush Heparin Sodium (Porcine) (Heparin Na) 5,000 unit SC Q8 [facility] Last Admin: 09/14/19 06:23 Dose: 5,000 unit Documented by: Sodium Chloride () 1,000 mls @ 125 mls/hr IV .Q8H [facility] Last Admin: 09/14/19 08:27 Dose: 125 mls/hr Documented by: Sodium Chloride () 250 mls @ 15 mls/hr IV .[id number] PRN PRN Reason: Saline Flush Last Admin: 09/14/19 08:03 Dose: 15 mls/hr Documented by: Potassium Chloride () 10 meq in 100 mls @ 100 mls/hr IV BOLUS Q1H [facility]ADY Stop: 09/14/19 11:29 Last Admin: 09/14/19 08:03 Dose: 100 mls/hr Documented by: Lidocaine/Prilocaine (Emla Cream W/Tegaderm) 0 gm TOPICAL DAILY PRN PRN; Protocol PRN Reason: for port access Melatonin (Melatonin) 3 mg PO QHS PRN PRN PRN Reason: INSOMNIA Ondansetron HCl (Zofran) 4 mg IV Q8H PRN PRN PRN Reason: NAUSEA/VOMITING Oxycodone HCl (Oxyfast) 5 mg PO Q6H PRN PRN PRN Reason: Pain Score 1-1010 Last Admin: 09/14/19 08:36 Dose: 5 mg Documented by: Potassium Chloride (Potassium Chl Soln) 40 meq PO X1 ONE Stop: 09/14/19 09:08 Sodium Chloride () 10 - 40 ml IV UD PRN PRN Reason: Port-a-Cath (VAD) Flush Last Admin: 09/14/19 06:24 Dose: 20 ml Documented by: Sodium Chloride (0.9% Nacl (Sterile) Posiflush) 10 - 40 ml IV UD PRN PRN Reason: Port access or dressing change Discharge Diet: - - see discharge orders Discharge Activity: - - weight bearing as tolerated. Walking boot with activity. Call your doctor if you observe: - - increased ankle pain. Home Medications: Medications to take at Discharge Rosuvastatin Calcium [Crestor] 20 mg PO DAILY 06/18/19 Ubidecarenone [Co Q-10] 10 mg PO DAILY 07/09/19 Lidocaine/Prilocaine [Lidocaine-Prilocaine Cream] 1 applicatio TP DAILY PRN PRN 30 Days #1 tube 07/15/19 fentaNYL patch [Duragesic patch] 25 mcg TRANSDERM. Q72H #12 patch 08/24/19 Gabapentin [Neurontin] 600 mg PO TID 09/11/19 Oxycodone HCl 5 ml PO Q6H PRN PRN #200 ml 09/11/19 Jevity 1.5 240 ml GT 6X/DAY bottle 09/14/19 Potassium Chl Soln 20 meq GT DAILY #5 udc 09/14/19 Following Prescrptions Were Given to Patient: Potassium Chl Soln 20 meq GT DAILY #5 udc Transmission Status: Received by [id number] Other Amb Orders: Basic Metabolic Profile (BMP) Time Frame: 1 Week, Facility: [facility], Location: Laboratory Primary Care Physician: Federico Maradiaga DO [Primary Care Provider] - Within 2 Weeks Please Follow Up With: Chacho Lew MD When: 09/15/2019, appointment alreay scheduled Please Follow Up With: Chacho Villalobos DO - Orthopaedics. When: 1-2 weeks. for follow up on fibular fracture. Disposition: Home Minutes spent on discharge:: 35 Patient Condition:: Fair Medical Necessity - Tobacco Use Smoking Status: Former smoker Tobacco Use: Cigarettes Meaningful Use Info Meaningful Use Diagnoses (Choose all that apply): None applicable Code Visit Inpatient E&M: 10815 Disch Hosp
--- NOTE | 2019-09-14 10:15 | CASEMGMT ---
RN CM Face to Face with patient for initial transition planning/care coordination assessment. RN CM introduced self and role at [facility]. Patient lying in bed, alert and oriented, at bedside. Patient willing to participate in assessment and is able to answer all questions appropriately. Care providers, pharmacy, and demographics verified. Patient wishes to discharge home, denies need for home health at this time. Patient states he has no further needs or concerns at this time. CM to follow for discharge planning needs that may arise. PCP: Ashwini Specialists: Vipin, oncologist; Viktoriya, radiology oncology Preferred Pharmacy: [facility] Insurance: MMO Prescription Benefit: yes Living Will/HPOA: none LNOK: Living Arrangements: Patient lives with in 1 story home with 2 steps and grab bar to enter. Patient is independent at home. Transportation: self, DME/HHC: Patient has cane, walker, shower chair, at home. Patient denies previous HHC. Disposition Plan: Patient to discharge home with family support and follow-up plans in place. Nelsy ANDERSEN, RN, CM
[2019-09-14 10:38] VITALS: BP 100/59; PULSE 98; RESP 18; TEMP 37.3; O2SAT 98
[2019-09-14 13:05] VITALS: BP 115/64; PULSE 98; RESP 18; TEMP 37.8; O2SAT 97
[2019-09-14 13:19] VITALS: BP 115/65; PULSE 98; RESP 18; TEMP 38; O2SAT 97
--- NOTE | 2019-09-15 12:53 | CASEMGMT ---
Addendum entered by Nelsy Vega 09/15/19 13:56: Called [facility] and s/w Shelly. Confirmed Dr Tovar did call and clarified script order for potassium and per Shelly they are working on it now. Called patient listed cell phone and updated [facility] and aware to call them in approx one hour to inquire about script being ready for picker packer. No further questions/concerns. AQUILINO Leonard Addendum entered by Nelsy Vega 09/15/19 13:13: Called [facility] [phone], s/w Shelly and states that they need a Quantity or day supply clarification from the provider. Dr Tovar core text sent to call [facility] for clarification. AQUILINO Leonard Original Note: Case Management DC F/u Call: DC Date: 09/14/2019 DC Diagnosis: Iron deficiency anemia (Acute), Hypokalemia (Acute), Tinnitus (Acute), Encounter for education (Acute), Iron deficiency (Acute), Chemotherapy management, encounter for (Acute) 1. MIKEL FeNa 7.08 consistent w ATN improving, though not at baseline yet (1.26 on 08/31) continue IVF dw patient about administering fluids through PEG, particularly when he cannot drink. 2. Dysphagia he has been coughing when drinking ST evaluation, recommending NPO but drinking water for quality of life. 3. Right distal fibular fxr. walking boot f/u with ortho as outpt 4. Laryngeal cancer follow up with rad onc and med onc as outpt. DC Disposition: Home Lace/Strata: 06/07 F/u Appts: Dr Maradiaga 09/25/19 at 1100, Dr Lew 09/15/19, Dr Villalobos 09/28/19 at 1300 Called patient cell phone listed in demographics, patient [facility] answered and states that patient is doing ok, states that patient was Dc'd with potassium and that [facility] told her it was not covered or something. Denies any questions/concerns/issues with [facility], f/u appts or further regarding medications. Aware this CM will call [facility] and inquire about potassium to get issue resolved and return call to them. AQUILINO Leonard
[2019-09-15 21:27] LABS: Eosinophil Ct. Urine No Eosinophils Seen % (.)
== END 2019-09-14 15:00 | disposition home or self-care (01) | DRG 684 ==
LOC: ED 13:18 → MS3 14:54
PROVIDERS: Admitting Provider Family Medicine; Emergency Provider Emergency Medicine; PCP Student in an Organized Health Care Education/Training Program
DX: N17.0 Acute kidney failure with tubular necrosis (principal); E86.0 Dehydration; S82.831A Other fracture of upper and lower end of right fibula, initial encounter for closed fracture; W19.XXXA Unspecified fall, initial encounter; C32.1 Malignant neoplasm of supraglottis; R13.10 Dysphagia, unspecified; E87.6 Hypokalemia; D50.9 Iron deficiency anemia, unspecified; Z93.1 Gastrostomy status; Z92.3 Personal history of irradiation; Z87.891 Personal history of nicotine dependence; Y92.019 Unspecified place in single-family (private) house as the place of occurrence of the external cause
CPT/HCPCS: 36415; 73590; 73610; 73630; 80048; 80053; 81001; 82570; 82962; 83735; 84300; 85025; 87205; 92610; 93005; 97802; 99284; J7030; J7050; A4216

== ENCOUNTER → 2019-09-28 13:53 | Outpatient (CLI) | payer OTHER, SELFPAY ==
[2019-09-28 13:26] VITALS: BMI 32.3
--- NOTE | 2019-09-28 13:53 | RAD_ITS ---
STUDY: X-RAY - RIGHT TIBIA AND FIBULA REASON FOR EXAM: Male, 59 years old. fall. follow up from a fall on the Sep with a fx TECHNIQUE: 2 view(s) of the tibia and fibula were obtained. COMPARISON: None. FINDINGS: Normal visualized tibia. Healing fracture of the proximal fibular shaft. Healing fracture of the distal fibular shaft. Remainder of the fibula is normal. Normal alignment. Soft tissue swelling at the level of the proximal fibular shaft and ankle. RAD/Tibia & Fibula 2 Views IMPRESSION: Healing fractures through the fibula with mild associated soft tissue swelling. Electronically Signed: Makayla Jiménez MD at 4:09 EST , Service support ,
--- NOTE | 2019-09-28 14:00 | RAD_ITS ---
STUDY: X-RAY - RIGHT ANKLE REASON FOR EXAM: Male, 59 years old. fall. follow up from a fall on the Sep with a fx TECHNIQUE: 3 view(s) of the ankle. COMPARISON: 09/11/2019. FINDINGS: Healing fracture through the distal fibula, stable. Otherwise normal visualized distal tibia and fibula. Normal medial and lateral malleoli. Mild degenerative disease at the tibiotalar articulation otherwise normal ankle mortise. Normal visualized talus and calcaneus. The visualized subtalar joint. There is mild degenerative arthrosis of the talonavicular and tarsal metatarsal joints. Remainder of the joints are unremarkable. Soft tissue swelling diffusely surrounding the ankle and more so anteriorly. RAD/Ankle min 3 Views IMPRESSION: Healing fracture of the distal fibula, stable in the interval. No new fracture identified. Mild degenerative disease. Normal alignment. Electronically Signed: Makayla Jiménez MD at 4:09 EST , Service support ,
== END ==
PROVIDERS: PCP Student in an Organized Health Care Education/Training Program; Referring Provider Orthopaedic Surgery; Visit Provider Orthopaedic Surgery
DX: M25.571 Pain in right ankle and joints of right foot (principal)
CPT/HCPCS: 73590; 73610

== ENCOUNTER → 2019-10-14 13:43 | Outpatient (CLI) | payer OTHER, SELFPAY ==
[2019-10-07 09:45] VITALS: BMI 30.3
[2019-10-14 12:53] VITALS: BMI 30.3
--- NOTE | 2019-10-14 14:00 | SP.MBSS_ITS ---
PRIMARY / SECONDARY DIAGNOSIS: dysphagia (R13.12) REFERRING PHYSICIAN: Dr. Neptali Sadler, DO, MS CURRENT DIET: regular ? 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 PREVIOUS MODIFIED BARIUM SWALLOW STUDY: None ASSESSMENT PARAMETERS: The Patient participated in a Modified Barium Swallow (MBS) study on 10/13/2018. This study was recorded in the lateral view and images were sent to PACs for storage. Scoring was completed through each trial using the 8- point Penetration-Aspiration Scale (PAS) and the Videofluoroscopic Scale Score (VSS), and summarized via the Modified Barium Swallow Impairment Profile (MBSImP), the Bolus Residue Scale (BRS), with severity scoring through the Dysphagia Severity Rating Scale (DSRS), the Swallowing Performance Scale (SPS), and the Dynamic Imaging Grade of Swallowing Toxicity (DIGEST), and recommended diet textures through the International Dysphagia Diet Standardisation Initiative (IDDSI) RESULTS OF THE EVALUATION: The Patient presents with moderate to severe oropharyngeal dysphagia (DSRS: 5; SPS: 5; DIGEST: grade III) with grade III overt and grade IV SILENT aspiration of thin liquids, as well as grade III overt aspiration of nectar thickened liquids, secondary to clinical stage LINDA (cT3 cN2c M0) well- differentiated 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 OBJECTIVE ASSESSMENT OF SWALLOW FUNCTION (QUANTITATIVE ? PER TRIAL): PENETRATION / ASPIRATION SCALE (RICHARDSON): 1 = does not enter airway 2 = enters airway/above vocal folds/ejected 3 = enters airway/above vocal folds/not ejected 4 = enters airway/contacts vocal folds/ejected 5 = enters airway/contacts vocal folds/not ejected 6 = enters airway/below vocal folds/ejected 7 = enters airway/below vocal folds/not ejected despite effort 8 = enters airway/below vocal folds/no effort VIDEOFLOROSCOPIC SCALE SCORE (RICHARDSON): Grade I = aspiration of material that has penetrated into the laryngeal vestibule, intact cough reflex Grade II = aspiration < 10 % of the bolus, intact cough reflex Grade III = aspiration of < 10 % of the bolus, reduced cough reflex or aspiration of > 10 % of the bolus, intact cough reflex Grade IV = aspiration of > 10 % of the bolus, reduced cough reflex PENETRATION / ASPIRATION SCALE (SCORE) WITH VIDEOFLOROSCOPIC SCALE SCORE: Thin liquid - 5 mL tsp.: 5 Thin liquids via cup (single sip): 7 ? Grade III Thin liquids via straw (chin tuck): 7 ? Grade III Thin liquids via straw (chin tuck): 8 ? Grade IV [place] thickened liquids via straw: 5 [place] thickened liquids via straw: 7 ? Grade III Pudding via spoon: 1 Regular textured cookie: 1 Thin liquids via straw (supraglottic swallow): 6 Thin liquids via straw (supraglottic swallow): 6 Thin liquids via straw (supraglottic swallow): 6 OBJECTIVE ASSESSMENT OF SWALLOW FUNCTION (QUANTITATIVE ? AGGREGATE): MODIFIED BARIUM SWALLOW IMPAIRMENT PROFILE (MBSImP) LABIAL SEAL: 0 (of 4) no labial escape TONGUE CONTROL: 0 (of 3) cohesive bolus BOLUS PREPARATION / MASTICATION: 0 (of 3) timely and efficient BOLUS TRANSPORT / LINGUAL MOTION: 0 (of 4) brisk tongue motion ORAL RESIDUE: 1 (of 4) trace residue lining oral structures INITIATION OF PHARYNGEAL SWALLOW: 2 (of 4) posterior surface of epiglottis SOFT PALATE ELEVATION: 0 (of 4) no bolus between soft palate & pharyngeal wall LARYNGEAL ELEVATION: 1 (of 3) partial superior movement / approximation ANTERIOR HYOID EXCURSION: 1 (of 2) partial movement EPIGLOTTIC MOVEMENT: 1 (of 2) partial inversion LARYNGEAL VESTIBULE CLOSURE: 1 (of 2) incomplete closure PHARYNGEAL STRIPPING WAVE: 1 (of 2) present / diminished PE SEGMENT OPENIN (of 3) partial distension / duration / obstruction TONGUE BASE RETRACTION: 2 (of 4) narrow column of contrast PHARYNGEAL RESIDUE: 2 (of 4) collection of residue ESOPHAGEAL BOLUS CLEARANCE: could not view BOLUS RESIDUE SCALE (BRS): 2 (of 6) residue in valleculae OBJECTIVE ASSESSMENT OF SWALLOW FUNCTION (SEVERITY GRADING): DYSPHAGIA SEVERITY RATING SCALE (DSRS): 5 (moderate-severe) SWALLOWING PERFORMANCE SCALE (SPS): 5 (moderate) DYNAMIC IMAGING GRADE OF SWALLOWING TOXICITY (DIGEST) DIGEST SAFETY GRADE: grade III (PAS 7-8 = gross, not chronic) DIGEST EFFICIENCY GRADE: grade I (10-49%; less than half residue; any bolus type) SUMMARY DIGEST GRADE: grade III (severe) OBJECTIVE ASSESSMENT OF SWALLOW FUNCTION (QUALITATIVE): ORAL PREPARATORY PHASE: sufficient mastication rate and quality; sufficient anterior oral containment during oral manipulation; preserved management of breathing / bolus formation ORAL TRANSITIONAL PHASE: no presence of transitional incompetence; no bolus consolidation impairments; sufficient oral containment across textures; no presence of premature posterior bolus loss PHARYNGEAL PHASE: mild pharyngeal phase dyssynchrony directly contributing to pre-prandial and prandial penetration / subsequent aspiration; reduced hyolaryngeal excursion and duration with insufficient laryngeal vestibule pressure generated to expel penetrated material; mild pharyngeal dysmotility most prominently with thicker viscosities with mild consolidation within the vallecula; no signs of velopharyngeal impairments; ESOPHAGEAL PHASE: no obvious esophageal phase abnormalities observed. RESPONSE TO STRATEGIES: all deficits managed successfully with reduction in bolus rate / volume adjustments paired with execution of the supraglottic swallow maneuver (noted to improve evacuation of tracheal aspiration and laryngeal penetration); insufficient effects noted with execution of the chin tuck posture and liquid viscosity adjustments DYSPHAGIA ASSOCIATED MEDICAL CONSIDERATIONS / INTERVENTION CONSIDERATIONS: The Patient was noted to both overtly and SILENTLY aspirate with thin liquids, with clinical assessment at bedside relying on identification of classic overt signs and symptoms of aspiration considered unreliable. I would recommend a repeat modified barium swallow study within 6 - 8 weeks (if clinically appropriate) to further assess the presence and extent of silent and overt aspiration prior to advancement to a less restrictive diet if the Patient continues to demonstrate independent completion of oropharyngeal swallow exercises outside of intervention sessions following training and implementation of compensatory swallow strategies if the Patient is able to consistently demonstrate and implement targeted strategies (supraglottic swallow). I would consider the Patient to be at a higher risk of aspiration related medical complications / aspiration pneumonia / aspiration related pulmonary syndrome secondary to the diagnosis of laryngeal cancer with recent completion of radiation therapy, presence of dysphagia, extensive pharyngeal phase impairment, presence and extent of SILENT aspiration of multiple viscosities identified under fluoroscopy, with no guarantee of prolonged tolerance of thickened liquids. I would strongly advise against removal of the Patients PEG tube at this time. The Patient previously openly reported intentions for non-compliance with recommendations for altered liquid viscosities, which I would caution placement on altered viscosities given the tolerance demonstrated under fluoroscopy in comparison to tolerance of thin liquids with compensatory measures (supraglottic swallow); given this we will advance with implementation of compensatory measures in lieu of viscosity adjustments AND compensatory measures, with no guarantees provided regarding aspiration risks and associated adverse medical complications. INTERVENTION RECOMMENDATIONS AND CONSIDERATIONS: The Patient requires continued skilled speech-language intervention targeting diet texture management and training / implementation of recommended compensatory strategies; continued training and implementation of a home based prophylactic swallowing exercise program to promote the highest level of preserved post-irradiation swallow functioning; continued training and implementation of a home oral care protocol to reduce the effects of xerostomia and improve / maintain the integrity of the oral mucosa reducing the risk of aspiration related pulmonary complications; and continued Patient / caregiver education regarding rock and post-irradiation dysphagia and associated symptomology; POST ASSESSMENT EDUCATION: Results and recommendations were discussed with the Patient and Patients family immediately following MBS completion, with the Patient and Patients family verbalizing understanding and agreement with all recommendations and education provided. We discussed factors impacting effects of aspiration, to include: the quantity of aspiration, the depth of aspiration (trachea or distal airways), and the physical properties of the aspirate. We discussed consequences of oropharyngeal dysphagia, to include pulmonary complications from tracheobronchial aspiration; potential for airway obstruction / asphyxiation; inadequate oral intake because of dysphagia; reduced liquid intake resulting in dehydration; reduced caloric intake resulting in unintentional and potentially medically complicating loss of weight; impairment in mental and physical condition; and complications in overall course of care. We again discussed benefits and risks associated with alternative means of nutrition, with increased access to caloric supplementation and reduce hydration deficits, in addition to possible reduction in stress associated with mealtimes, though gastrostomy feeding does not significantly reduce aspiration risk. I provided brief overview of signs and symptoms of aspiration, with recommendations for the Patient to further discuss symptoms with the Patients primary care provider. DIET TEXTURE RECOMMENDATIONS: Will recommend a regular ? soft textured (IDDSI: 6), thin liquid diet (IDDSI: 0) diet RECOMMENDED COMPENSATORY STRATEGIES: Execution of the supraglottic swallow with thin liquids only, consider cutting tougher textures into bite sized pieces, reduced bolus volume / rate of ingestion, liquid chaser at reasonable intervals, seated upright at 90 degrees during PO intake, remain upright for 30-60 minutes post meal (GERD precaution) IMAGE COUNT: [id number] Jamie Gregory M.A., DAVE-DELIVERY MGR, CBIS MBSImP Certified, LSVT Certified [facility] Speech-Language Pathology Department [email or web address]
== END ==
PROVIDERS: PCP Student in an Organized Health Care Education/Training Program; Referring Provider Student in an Organized Health Care Education/Training Program; Visit Provider Student in an Organized Health Care Education/Training Program
DX: R13.10 Dysphagia, unspecified (principal)
CPT/HCPCS: 74230; 92611

== ENCOUNTER → 2019-10-26 11:23 | Outpatient (CLI) | payer OTHER, SELFPAY ==
[2019-10-21 09:40] VITALS: BMI 30.3
--- NOTE | 2019-10-26 11:24 | RAD_ITS ---
STUDY: X-RAY - RIGHT ANKLE REASON FOR EXAM: Male, 59 years old. FRACTURE TECHNIQUE: 3 view(s) of the ankle. COMPARISON: Comparison is made with prior examination dated September 28, 2019. FINDINGS: Stable 1.3 cm x 1.9 cm popcorn like calcification along the medial aspect of the proximal tibial metaphysis suggestive of either chondroid calcification or healed bone infarct. Stable appearance of the distal fibula in keeping with the healing lateral malleolar fracture with deformity. There is also evidence of a healing fracture in the proximal neck of the fibula. Normal tibiotalar articulation and ankle mortise. Normal visualized talus and calcaneus. The visualized subtalar, talonavicular, calcaneocuboid and tarsal articulations are normal. The soft tissue structures are unremarkable. RAD/Ankle min 3 Views IMPRESSION: Healing fracture of the proximal diaphysis of the fibula as well as the lateral malleolus. Electronically Signed: Robin Rebolledo, at 12:46 EDT , Service support ,
--- NOTE | 2019-10-26 11:24 | RAD_ITS ---
STUDY: X-RAY - RIGHT TIBIA AND FIBULA REASON FOR EXAM: Male, 59 years old. FRACTURE TECHNIQUE: 4 view(s) of the tibia and fibula were obtained. COMPARISON: Comparison is made with prior study dated September 28, 2019. FINDINGS: Stable appearance of the medial aspect of the proximal tibial metaphysis with evidence of a chondroid-like calcification. Healing fractures of the proximal fibula metaphysis and lateral malleolus. The soft tissue structures are unremarkable. RAD/Tibia & Fibula 2 Views IMPRESSION: Stable examination. Electronically Signed: Robin Rebolledo, at 12:48 EDT , Service support ,
== END ==
PROVIDERS: PCP Student in an Organized Health Care Education/Training Program; Referring Provider Orthopaedic Surgery; Visit Provider Orthopaedic Surgery
DX: S82.61XA Displaced fracture of lateral malleolus of right fibula, initial encounter for closed fracture (principal); S82.831A Other fracture of upper and lower end of right fibula, initial encounter for closed fracture
CPT/HCPCS: 73590; 73610

== ENCOUNTER 2019-12-07 10:00 | Outpatient (RCR) | payer OTHER, SELFPAY ==
[2019-07-22 10:40] VITALS: BMI 33.3
[2019-07-31 08:35] VITALS: BMI 32.6
--- NOTE | 2019-07-31 09:45 | SOAP_ITS ---
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 The Patient reports occasional / intermittent coughing with liquid ingestion over the last few months that has remained steady, and does not occur every meal. He further reports intermittent post prandial sensations of stasis vs. globus sensation following ingestion of breads / occasionally meats, though he states he can usually clear this with voluntary expectoration and / or following with a liquid wash. He denies any issues with sensation of nasopharyngeal reflux. He reports intermittent hemoptysis prior to initiation of irradiation, which has improved somewhat over the past 2-3 days with ?icing?. He denies any significant weight loss (stable; ~239 ? 245 lbs); denies any changes in appetite, reports no issues with early satiety or inanition; no nausea and / or emesis. He denies any issues associated with dysgeusia / hypogeusia / ageusia / hyposmia. He has underwent prophylactic percutaneous endoscopic gastrostomy (PEG) tube placement, with no use to date. He denies issues with trismus or odynophagia. He reports rather mild xerostomia that has been easily managed with liquid intake and use of Biotene PRN. He denies any issues with diurnal sialorrhea. He denies any issues with persistent reflux, substernal discomfort, or eructation. He denies suboptimal intake behaviors (tachyphagia, bolus bolting, or aerophagia). He denies any current or previous issues with aspiration related pulmonary complications, to include pneumonia, bronchitis, or unexplained asthma symptoms. He appears cognitively intact, affect appears appropriate given the Patients current medical circumstances. The Patient is fully ambulatory with no difficulties with posture maintenance, and appears well nourished. 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 PREVIOUS MODIFIED BARIUM SWALLOW STUDY: None ORAL MOTOR / MODIFIED CRANIAL NERVE ASSESSMENT: CNV, VII, IX, X, and XII appear grossly intact. Upper / lower dentures in place, easily displaced (did not use denture adhesive this date). Small aphthous ulcers / canker sore along the right lower buccal surface. Very mild xerostomia managed with Biotene. No diurnal sialorrhea observed / reported. Appropriate volitional cough intensity. No reported or observed signs or symptoms of trismus (IID: 4.83 cm). Slight hoarse / harsh vocal quality noted, with reported intermittent aphonic breaks and lower pitch. FUNCTIONAL STATUS ASSESSMENT RESULTS: Karnofsky Performance Scale Index: 80-90 Thorne Index of [place] in Activities of Daily Livin/6 [place] ? Kam Instrumental Activities of Daily Living Scale (IADL): 03/12 Functional Ambulation Category (FAC): 5 (ambulator- independent) SUPPLEMENTARY DYSPHAGIA ASSESSMENT RESULTS (QUANTITATIVE): Reflux Symptom Index (RSI): 8 (>13 may suggest significant reflux) Sialorrhea Scoring Scale (SSS): 1/9 (dry, never drools) [facility] Xerostomia Questionnaire: Radiation Therapy Oncology Group Radiation Morbidity Scoring Criteria for Xerostomia: Acute Reactions: grade I (mild) Scale of Subjective Total Taste Acuity (STTA): grade 0 (same taste as baseline) World Health Organization (WHO) Oral Mucositis Scale: grade 0 (no objective findings) Inter-incisor Distance (IID): 4.83 cm Performance Status Scale for Head & Neck Cancer Patients (PSS-HN): 290/300 Normalcy of Diet: 90 ? full diet (liquid assistance) Public Eatin ? no restriction of place, food, or company Understandability of Speech: 100 ? always understandable MD Tutu Dysphagia Inventory (MDADI): Global: 5/5 Physical: 36/40 Emotional: 30/30 Functional: 24/25 Composite score: 90 Mean Point Score: 4.74 Final Score: 94.74 * composite Score ranges from 20 (extremely low functioning) to 100 (high functioning) Total Dysphagia Risk Score (TDRS): 25 ? High risk (TDRS > 18) CLINICAL ASSESSMENT OF SWALLOW FUNCTION (QUANTITATIVE): Repetitive Saliva Swallowing Test (RSST): pass 1oz (30mL) Water Swallowing Test (1oz WST): normal ? 1 (of 5) 3oz (90mL) Water Swallow Test (3oz WST): abnormal; post prandial throat clearing William Assessment of Swallowing Ability ? Cancer (MASA-C): 189 (unremarkable) MASA-C Dysphagia Risk Rating: probable Swallowing Performance Scale (PSP): 3 (mild) CLINICAL ASSESSMENT OF SWALLOW FUNCTION (QUALITATIVE): ORAL PREPARATORY PHASE: sufficient mastication rate and quality; sufficient anterior oral containment; preserved management of breathing / bolus formation without disrupted E ? S ? E pattern ORAL TRANSITIONAL PHASE: no signs of transitional incompetence; no signs of bolus consolidation impairments; no signs or symptoms of premature posterior bolus loss; PHARYNGEAL PHASE: appropriate hyolaryngeal excursion upon digital palpation; intermittent audible swallow possibly suggestive of pharyngeal swallow delay / dyssynchrony; occasional multiple swallows during trials of smaller / rather manageable bolus volumes suggestive of pharyngeal dysmotility, though in isolation this may lack clinical significance; no subjective signs of velopharyngeal impairments; intermittent post prandial throat clearing possibly suggesting overt aspiration during trials of thin liquids (ameliorated with bolus size reduction); no further signs or symptoms of penetration / aspiration throughout trials. 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 INTERVENTION CONSIDERATIONS AND CONCERNS: Cannot definitively rule out silent aspiration at bedside. The Patient is at higher risk of silent aspiration secondary to the diagnosis of laryngeal based cancer, requiring further assessment of the oropharyngeal swallow function under fluoroscopy. The patient is at higher risk for continual changes and possible decline in swallow functioning / dysphagia severity throughout the chemoradiation intervention cycle; would benefit from continued monitoring across all domains. The Patient would be considered at higher risk of malnutrition and dehydration throughout the irradiation process, though appears to be maintaining weight at current juncture. I would additionally recommend a repeat modified barium swallow study within 1-2 months post chemoradiation to further assess the Patients oropharyngeal swallow function and identify any post radiation changes in the oropharyngeal physiology, as the patient is at higher risk for continual changes and possible decline in swallow functioning / dysphagia severity throughout the chemoradiation intervention cycle; RECOMMENDATIONS FOR INTERVENTION: The Patient requires continued skilled speech-language intervention targeting diet texture management and training / implementation of recommended compensatory strategies; training and implementation of a home based prophylactic swallowing exercise program to promote the highest level of preserved post-irradiation swallow functioning; training and implementation of a home oral care protocol to reduce the effects of xerostomia and improve / maintain the integrity of the oral mucosa reducing the risk of aspiration related pulmonary complications; Patient / caregiver education regarding rock and post-irradiation dysphagia and associated symptomology; with goal adjustment pending MBS completion. DIET TEXTURE RECOMMENDATIONS: Will recommend a regular ? soft textured (IDDSI: 6), thin liquid diet (IDDSI: 0) diet RECOMMENDED COMPENSATORY STRATEGIES: Reduced bolus volume / rate of ingestion, seated upright at 90 degrees during PO intake, remain upright for 30-60 minutes post meal (GERD precaution), medications one at a time with a liquid chaser. FUNCTIONAL OUTCOMES: OUTCOME 1: the Patient will tolerate the least restrictive means of nutrition to facilitate adequate hydration / nutrition with optimum safety and efficiency of swallowing function during P.O. intake without overt signs and symptoms of aspiration. OUTCOME 2: the Patient will demonstrate and utilize recommended oropharyngeal range of motion exercise within the Patients clinical and home based program to improve and maintain overall oropharyngeal functioning and reducing the effects of post-irradiation dysphagia, with minimal cueing and prompting provide by the clinician, across 2 out of 3 sessions. OUTCOME 3: the Patient will participate in a home based oral care program established during intervention sessions to facilitate improved and maintained integrity of the oral mucosa throughout the irradiation process with complete independence. OUTCOME 4: the Patient will participate in a Modified Barium Swallow (MBS) study to objectively assess the Patient?s oropharyngeal swallowing function, to determine the least restrictive means of nutrition, to objectively assess the effectiveness of previously identified strategies / precautions, and to identify appropriate intervention approaches / strategies to implement during treatment sessions at the supervised level. OUTCOME 5: goal adjustment as needed post MBS Jamie Gregory M.A., CCC-HANDLE FINISHER, CBIS MBSImP Certified, LSVT Certified [facility] Speech-Language Pathology Department [email or web address]
== END 2019-12-07 19:00 | disposition home or self-care (01) ==
LOC: SP 10:00
PROVIDERS: Family Provider Student in an Organized Health Care Education/Training Program; PCP Student in an Organized Health Care Education/Training Program; Referring Provider Student in an Organized Health Care Education/Training Program; Visit Provider Student in an Organized Health Care Education/Training Program
DX: R13.10 Dysphagia, unspecified (principal); C32.9 Malignant neoplasm of larynx, unspecified
CPT/HCPCS: 92526; 92610

== ENCOUNTER → 2021-03-06 09:16 | Outpatient (CLI) | payer OTHER, SELFPAY ==
[2019-10-26 13:03] VITALS: BMI 30.3
[2020-09-16 10:30] VITALS: BMI 29.2
--- NOTE | 2021-03-06 09:17 | RAD_ITS ---
EXAM DESCRIPTION: PORTABLE AP CHEST CLINICAL HISTORY: 60 years Male, HX OF LARYNGEAL CANCER HX OF LARYNGEAL CANCER COMPARISON: Previous CT scan of the chest obtained on 06/18/2019 FINDINGS: A right MediPort catheter is noted in place in good position. Old rib fracture deformities are noted involving the posterior aspect of the left eighth and ninth ribs. The rest of the thorax is intact. The heart and mediastinum appear to be within normal limits. The lungs appear to be well areated without evidence of pneumonic consolidation or pleural effusion. RAD/Chest PA and Lateral IMPRESSION: No acute pathology. Electronically Signed: Epi Talavera DO at 10:39 EDT Tel , Service support ,
== END ==
PROVIDERS: PCP Student in an Organized Health Care Education/Training Program; Referring Provider Internal Medicine Medical Oncology; Visit Provider Internal Medicine Medical Oncology
DX: C32.9 Malignant neoplasm of larynx, unspecified (principal); D50.9 Iron deficiency anemia, unspecified
CPT/HCPCS: 71046